=== PATIENT | female | born 1935 | race African-American/Black ===

== ENCOUNTER 2020-11-10 09:15 | Outpatient (REF) | payer MEDICARE, SELFPAY ==
[2020-11-10 10:20] LABS: Basophils Percent Auto 0.5 % (0-2); Eosinophils Absolute Auto 0.1 X10*3/uL (0.0-0.4); Eosinophils Percent Auto 1.7 % (0-4); Hematocrit 45.2 % (37-47); Hemoglobin 14.1 g/dl (12.0-16.0); Imm Gran Abs Auto 0.02 X10*3/uL (0.00-0.03); Imm Gran Pct Auto 0.3 % (0.0-0.4); Lymphocytes Absolute Auto 1.5 X10*3/uL (1.2-4.9); Lymphocytes Percent Auto 26.1 % (20-40); MANUAL DIFF FLAG SCAN; Mean Corpuscular HGB Conc 31.2 g/dl (31.0-35.0); Mean Corpuscular Hemoglobin 27.8 pg (27.0-33.0); Mean Corpuscular Volume 89.2 fL (80-98); Mean Platelet Volume 12.6 fL (9.4-12.3); Monocytes Absolute Auto 0.6 X10*3/uL (0.1-1.2); Monocytes Percent Auto 9.4 % (2-11); Neutrophils Absolute Auto 3.6 X10*3/uL (2.0-8.3); PLT CLUMP 1; Red Blood Count 5.07 X10*6/uL (4.20-5.50); Red Cell Distribution Width 13.7 % (11.0-16.0); SCAN SMEAR FLAG 1
[2020-11-10 10:25] LABS: Estimated Average Glucose 126 mg/dL
[2020-11-10 10:40] LABS: Alanine Aminotransferase 12 U/L (0-31); Albumin Level 4.5 g/dL (3.5-5.0); Alkaline Phosphatase 101 U/L (39-117); Anion Gap 14 (12-20); Aspartate Amino Transferase 17 U/L (5-31); Bilirubin Total 0.5 mg/dL (0.0-1.0); Blood Urea Nitrogen 17 mg/dL (9-16); Calcium 9.9 mg/dL (8.4-10.2); Carbon Dioxide 27 mmol/L (22-29); Chloride 106 mmol/L (96-108); Cholesterol 163 mg/dL; Estimated Glomerular Filt Rate 47; Glucose Random 110 mg/dL (60-115); HDL Cholesterol 57 mg/dL; LDL Cholesterol Calculated 94 mg/dl; Potassium 3.9 mmol/L (3.3-5.1); Sodium 143 mmol/L (135-145); Total Protein 7.8 g/dL (6.5-8.0); Triglycerides 64 mg/dL
[2020-11-10 10:41] LABS: Creatinine Urine 95.17 mg/dL; Microalbum/Creatinine Ratio Ur 511.7 ug/mg cr
[2020-11-10 11:02] LABS: Free T4 (Free Thyroxine) 1.13 ng/dL (0.71-1.85); Vitamin D 25-OH Total 56.9 ng/mL (>30)
[2020-11-10 11:28] LABS: White Blood Count 5.8 X10*3/uL (4.8-10.8)
[2020-11-10 11:30] LABS: SLIDE REVIEW VERIFIED
[2020-11-10 11:34] LABS: Folate 7.7 ng/mL (> or = 4.0); Vitamin B12 244 pg/mL (200-900)
== END 2020-11-10 09:16 | disposition home or self-care (01) ==
LOC: HO.LAB 09:15
PROVIDERS: PCP Internal Medicine; Visit Provider Internal Medicine
DX: E11.65 Type 2 diabetes mellitus with hyperglycemia (principal); E78.00 Pure hypercholesterolemia, unspecified; E11.21 Type 2 diabetes mellitus with diabetic nephropathy; I10 Essential (primary) hypertension
CPT/HCPCS: 36415; 80053; 80061; 82043; 82306; 82607; 82746; 83036; 84439; 84443; 85025

== ENCOUNTER 2020-11-15 07:27 | Outpatient (REF) | payer MEDICARE, SELFPAY ==
[2020-11-15 08:40] LABS: Alanine Aminotransferase 11 U/L (0-31); Albumin Level 4.4 g/dL (3.5-5.0); Alkaline Phosphatase 83 U/L (39-117); Anion Gap 13 (12-20); Aspartate Amino Transferase 15 U/L (5-31); Bilirubin Total 0.6 mg/dL (0.0-1.0); Blood Urea Nitrogen 14 mg/dL (9-16); Calcium 9.8 mg/dL (8.4-10.2); Carbon Dioxide 29 mmol/L (22-29); Chloride 105 mmol/L (96-108); Estimated Glomerular Filt Rate 50; Glucose Random 111 mg/dL (60-115); Potassium 4.4 mmol/L (3.3-5.1); Sodium 143 mmol/L (135-145); Total Protein 7.5 g/dL (6.5-8.0)
[2020-11-15 09:33] LABS: Protein/Creatinine Ratio, Ur 0.37 (<0.2); Total Protein Urine Random 39 mg/dL (<12)
[2020-11-17 17:31] LABS: Calcium (PTHI) 9.9 mg/dL (8.6-10.4); PTHI 50 pg/mL (14-64)
== END 2020-11-15 07:28 | disposition home or self-care (01) ==
LOC: HO.LAB 07:27
PROVIDERS: PCP Internal Medicine; Visit Provider Internal Medicine Hypertension Specialist
DX: I10 Essential (primary) hypertension (principal)
CPT/HCPCS: 36415; 80053; 83970; 84156

== ENCOUNTER 2021-03-14 08:30 | Outpatient (REF) | payer MEDICARE, SELFPAY ==
[2021-03-14 09:54] LABS: Free T4 (Free Thyroxine) 1.07 ng/dL (0.71-1.85); Thyroid Stimulating Hormone 0.37 uIU/mL (0.32-4.0)
[2021-03-14 10:47] LABS: Creatinine Urine 159.75 mg/dL
== END 2021-03-14 08:31 | disposition home or self-care (01) ==
LOC: HO.LAB 08:30
PROVIDERS: PCP Internal Medicine; Visit Provider Internal Medicine
DX: E11.65 Type 2 diabetes mellitus with hyperglycemia (principal); R94.6 Abnormal results of thyroid function studies
CPT/HCPCS: 36415; 84439; 84443

== ENCOUNTER 2021-04-11 07:24 | Outpatient (REF) | payer MEDICARE, SELFPAY ==
--- NOTE | ~2021-04-11 | MM_ITS ---
EXAMINATION: BONE DENSITOMETRY CLINICAL INDICATION: Osteopenia. COMPARISON: Baseline BD dated 05/21/2013. TECHNIQUE: Using a [employer] DXA System (software version: 13.1) manufactured by [employer], dual-energy x-ray absorptiometry was performed of the lumbar spine and left hip. The images are of good technical quality. Summary results are attached. FINDINGS: AP SPINE L1-L4: Current: BMD 1.493 g/cm2, Z-score 4.1, T-score 2.6, normal, 9.7% increase from baseline (<5% change is not significant). Baseline: BMD 1.361 g/cm2. LEFT FEMUR, NECK: Current: BMD 0.975 g/cm2, Z-score 1.2, T-score -0.5, normal. Baseline: BMD 1.087 g/cm2. LEFT FEMUR, TOTAL: Current: BMD 0.885 g/cm2, Z-score 0.6, T-score -1.0, normal, 9.3% decrease from baseline (<5% change is not significant). Baseline: BMD 0.976 g/cm2. IDENTIFIED RISK FACTORS: Menopause, renal. HISTORY OF FRACTURE: None listed. MEDICATIONS: Vitamin D. MM/XR DEXA axial skeleton IMPRESSION: 1. DIAGNOSIS: Normal bone density based on the lowest T-score value of -1.0 in the total femur applying World Health Organization criteria. 2. 10-YEAR FRACTURE RISK PREDICTION, FRAX: Major osteoporotic fracture (clinical spine, forearm, hip or shoulder) 4.0%. Hip fracture 0.8%. 3. Treatment Recommendations: NOF guidelines recommend consideration for treatment in postmenopausal women and men age 50 and older presenting with the following: -A hip or vertebral (clinical or morphometric) fracture. -T-score less than or equal to -2.5 at the femoral neck or spine after appropriate evaluation to exclude secondary causes. -Low bone mass at the hip or spine and a 10-year fracture probability by FRAX of greater than or equal to 3% for hip fracture or greater than or equal to 20% for major osteoporotic fracture based on the [place] adapted WHO algorithm. 4. Other Recommendations: All treatment decisions require clinical judgment and consideration of individual patient factors, including patient preferences, comorbidities, previous drug use, risk factors not captured in the FRAX model (e.g. frailty, falls, vitamin D deficiency, increased bone turnover, interval significant decline in bone density) and possible under or overestimation of fracture risk by FRAX. FUTURE SCAN RECOMMENDATION: People with diagnosed cases of osteoporosis or at high risk for fracture should have regular bone mineral density tests. For patients eligible for Medicare, routine testing is allowed once every 2 years. The testing frequency can be increased to one year for patients who have rapidly progressing disease, those who are receiving or discontinuing medical therapy to restore bone mass, or have additional risk factors.
== END 2021-04-11 07:25 | disposition home or self-care (01) ==
LOC: HO.US 07:24
PROVIDERS: PCP Internal Medicine; Visit Provider Internal Medicine
DX: Z13.820 Encounter for screening for osteoporosis (principal); M85.89 Other specified disorders of bone density and structure, multiple sites; Z78.0 Asymptomatic menopausal state
CPT/HCPCS: 77080

== ENCOUNTER 2021-04-24 08:55 | Outpatient (REF) | payer MEDICARE, SELFPAY ==
--- NOTE | ~2021-04-24 | US_ITS ---
EXAMINATION: US THYROID CLINICAL INFORMATION: Thyroid nodule. COMPARISON: Ultrasound thyroid 12/16/2018. TECHNIQUE: Linear transducer grayscale and color Doppler examination with attention to the region of the thyroid. FINDINGS: SIZE: Measurements of the thyroid lobes and nodules are given in sagittal, anteroposterior and transverse dimensions respectively. Right Thyroid Lobe: 5.7 x 2.3 x 2.4 cm, volume 16.5 mL. Previously 5.6 x 2.7 x 2.1 cm, volume 16.5 mL. Parenchyma: The gland echotexture is heterogeneous. Thyroid vascularity is increased. Left Thyroid Lobe: 5.2 x 1.1 x 1.5 cm, volume 4.5 mL. Previously 4.4 x 1.8 x 1.4 cm, volume 5.7 mL. Parenchyma: The gland echotexture is heterogeneous. Thyroid vascularity is normal. Isthmus: 0.3 cm in maximum AP dimension. Previously 0.2 cm. There are innumerable bilateral nodules. 5 largest nodules greater than or equal to 1 cm are measured. Estimated total number of nodules greater than or equal to 1 cm: 5. Career Guidance Technician nodules are described as follows: 1. Location: Right mid. Size: 1.7 x 1.3 x 1.7 cm, volume 2.0 mL. Previously: Nodule characteristics: Composition: Solid/almost completely solid (2). Echogenicity: Hyperechoic (1). Shape: Not taller than wide (0). Margins: Ill-defined (0). Echogenic Foci: Macrocalcifications (1). ACR TI-RADS total points: 4 ACR TI-RADS category: 4 Significant change in size (>/= 20% in 2 dimensions and minimal increase of 2 mm or 50% or greater increase in volume): Change in features: Change in ACR TI-RADS risk category: 2. Location: Right lower. Size: 2.5 x 2.0 x 2.0 cm, volume 5.1 mL. Previously: 2.8 x 2.0 x 2.3 cm, volume 6.7 mL. Nodule characteristics: Composition: Solid/almost completely solid (2). Echogenicity: Hyperechoic (1). Shape: Not taller than wide (0). Margins: Ill-defined (0). Echogenic Foci: None (0). ACR TI-RADS total points: 3 ACR TI-RADS category: 3 Significant change in size (>/= 20% in 2 dimensions and minimal increase of 2 mm or 50% or greater increase in volume): Change in features: Change in ACR TI-RADS risk category: 3. Location: Right lower. Size: 1.9 x 1.7 x 2.0 cm, volume 3.2 mL. Previously: Nodule characteristics: Composition: Solid/almost completely solid (2). Echogenicity: Hyperechoic (1). Shape: Not taller than wide (0). Margins: Ill-defined (0). Echogenic Foci: None (0). ACR TI-RADS total points: 3 ACR TI-RADS category: 3 Significant change in size (>/= 20% in 2 dimensions and minimal increase of 2 mm or 50% or greater increase in volume): Change in features: Change in ACR TI-RADS risk category: 4. Location: Left lower. Size: 1.3 x 0.8 x 0.7 cm, volume 0.4 mL. Previously: 1.2 x 1.1 x 1.1 cm, volume 0.8 mL. Nodule characteristics: Composition: Solid (2). Echogenicity: Hyperechoic (1). Shape: Taller than wide (3). Margins: Ill-defined (0). Echogenic Foci: None (0). ACR TI-RADS total points: 6 ACR TI-RADS category: 4 Significant change in size (>/= 20% in 2 dimensions and minimal increase of 2 mm or 50% or greater increase in volume): Change in features: Change in ACR TI-RADS risk category: 5. Location: Left lower. Size: 1.0 x 0.7 x 0.9 cm, volume 0.3 mL. Previously: 1.0 x 0.8 x 0.8 cm, volume 0.3 mL. Nodule characteristics: Composition: Solid (2). Echogenicity: Hyperechoic (1). Shape: Not taller than wide (0). Margins: Ill-defined (0). Echogenic Foci: None (0). ACR TI-RADS total points: 3 ACR TI-RADS category: 3 Significant change in size (>/= 20% in 2 dimensions and minimal increase of 2 mm or 50% or greater increase in volume): Change in features: Change in ACR TI-RADS risk category: NODES: No lymphadenopathy is seen in the tissue surrounding the thyroid gland. US/US thyroid IMPRESSION: Enlarged very heterogeneous hypervascular thyroid gland. Innumerable bilateral nodules. There are 2 newly appreciated nodules in the right lobe. ACR TI-RADS RECOMMENDATION REFERENCE: Ultrasound-guided fine-needle aspiration, followup ultrasound, no further follow up. * TR1 (0 point) and TR 2 (2 points): No FNA or follow up * TR3 (3 points): FNA if more than or equal to 2.5 cm in maximum dimension, followup ultrasound in 1, 3 and 5 years if 1.5 to 2.4 cm in maximum dimension. * TR4 (4-6 points): FNA if more than or equal to 1.5 cm in maximum dimension, followup ultrasound in 1, 2, 3 and 5 years if 1 to 1.4 cm in maximum dimension. * TR5 (more than or equal to 7 points): FNA if more than or equal to 1 cm in maximum dimension, followup ultrasound every year for 5 years if 0.5 to 0.9 cm in maximum dimension. * TR3, TR4 or TR5 nodules that are below the size threshold for follow up receive no follow up.
== END 2021-04-24 08:56 | disposition home or self-care (01) ==
LOC: HO.US 08:55
PROVIDERS: PCP Internal Medicine; Visit Provider Internal Medicine
DX: E04.1 Nontoxic single thyroid nodule (principal)
CPT/HCPCS: 76536

== ENCOUNTER 2022-01-06 07:57 | Outpatient (REF) | payer MEDICARE, SELFPAY ==
[2022-01-06 08:13] LABS: MANUAL DIFF FLAG NO
[2022-01-06 08:43] LABS: Basophils Absolute Auto 0.1 X10*3/uL (0.0-0.2); Basophils Percent Auto 1.2 % (0-2); Eosinophils Absolute Auto 0.1 X10*3/uL (0.0-0.4); Eosinophils Percent Auto 1.9 % (0-4); Hemoglobin 14.3 g/dl (12.0-16.0); Imm Gran Abs Auto 0.01 X10*3/uL (0.00-0.03); Imm Gran Pct Auto 0.2 % (0.0-0.4); Lymphocytes Absolute Auto 1.6 X10*3/uL (1.2-4.9); Lymphocytes Percent Auto 38.3 % (20-40); Mean Corpuscular HGB Conc 31.8 g/dl (31.0-35.0); Mean Corpuscular Hemoglobin 27.3 pg (27.0-33.0); Mean Corpuscular Volume 85.9 fL (80.0-98.0); Monocytes Absolute Auto 0.6 X10*3/uL (0.1-1.2); Monocytes Percent Auto 13.8 % (2-11); Neutrophils Absolute Auto 1.9 x10*3/uL (2.0-8.3); Neutrophils Percent Auto 44.6 % (45-73); Platelet Count 246 X10*3/uL (160-400); Red Blood Count 5.24 X10*6/uL (4.20-5.50); Red Cell Distribution Width 13.8 % (11.0-16.0); White Blood Count 4.2 X10*3/uL (4.8-10.8)
[2022-01-06 08:54] LABS: Estimated Average Glucose 123 mg/dL; Hemoglobin A1C 150.7878 umol/L; Hemoglobin A1c % 5.9 %
[2022-01-06 08:59] LABS: Alanine Aminotransferase 12 U/L (0-31); Albumin Level 4.6 g/dL (3.5-5.0); Alkaline Phosphatase 88 U/L (39-117); Anion Gap 15 (12-20); Aspartate Amino Transferase 15 U/L (5-31); Bilirubin Direct 0.3 mg/dL (0.0-0.5); Bilirubin Total 0.7 mg/dL (0.0-1.0); Blood Urea Nitrogen 17 mg/dL (9-16); C Reactive Protein 0.31 mg/dL (< or = 0.50); Calcium 9.9 mg/dL (8.4-10.2); Carbon Dioxide 29 mmol/L (22-29); Chloride 104 mmol/L (96-108); Cholesterol 167 mg/dL; Estimated Glomerular Filt Rate 45; Glucose Random 91 mg/dL (60-115); HDL Cholesterol 57 mg/dL; LDL Cholesterol Calculated 98 mg/dl; Potassium 4.2 mmol/L (3.3-5.1); Sodium 144 mmol/L (135-145); Total Protein 8.1 g/dL (6.5-8.0); Triglycerides 62 mg/dL
[2022-01-06 09:21] LABS: Free T4 (Free Thyroxine) 1.14 ng/dL (0.71-1.85); Thyroid Stimulating Hormone 0.48 uIU/mL (0.32-4.0); Vitamin D 25-OH Total 64.3 ng/mL (>30)
[2022-01-06 10:58] LABS: Creatinine Urine 150.65 mg/dL; Microalbum/Creatinine Ratio Ur 254.8 ug/mg cr
[2022-01-08 08:05] LABS: Folate 7.4 ng/mL (> or = 4.0); Vitamin B12 > 2000 pg/mL (200-900)
== END 2022-01-06 07:58 | disposition home or self-care (01) ==
LOC: HO.LAB 07:57
PROVIDERS: PCP Internal Medicine; Visit Provider Internal Medicine
DX: R10.9 Unspecified abdominal pain (principal); E11.65 Type 2 diabetes mellitus with hyperglycemia; E78.00 Pure hypercholesterolemia, unspecified
CPT/HCPCS: 36415; 80053; 80061; 82043; 82248; 82306; 82607; 82746; 83036; 84439; 84443; 85025; 86140

== ENCOUNTER 2022-10-20 10:19 | Outpatient (REF) | payer MEDICARE, SELFPAY ==
--- NOTE | ~2022-10-20 | XR_ITS ---
EXAMINATION: XR CHEST CLINICAL INFORMATION: Cough, unspecified COMPARISON: None available. TECHNIQUE: 2 views of the chest were obtained. FINDINGS: Trace linear atelectasis at the left base post appreciated on lateral radiograph. Otherwise no significant abnormality is noted involving the heart, lungs, mediastinum, bony thorax or soft tissues. XR/XR chest 2V IMPRESSION: Probable minimal linear atelectasis at the left base.
== END 2022-10-20 10:20 | disposition home or self-care (01) ==
LOC: HO.XRAY 10:19
PROVIDERS: PCP Internal Medicine; Visit Provider Internal Medicine
DX: R05.9 Cough, unspecified (principal)
CPT/HCPCS: 71046

== ENCOUNTER 2022-10-30 13:41 | Outpatient (REF) | payer MEDICARE, SELFPAY ==
--- NOTE | ~2022-10-30 | US_ITS ---
EXAMINATION: US THYROID CLINICAL INFORMATION: Nontoxic single thyroid nodule. COMPARISON: Ultrasound thyroid 04/24/2021 and 05/05/2015. TECHNIQUE: Linear transducer grayscale and color Doppler examination with attention to the region of the thyroid. FINDINGS: SIZE: Measurements of the thyroid lobes and nodules are given in sagittal, anteroposterior and transverse dimensions respectively. Right Thyroid Lobe: 5.6 x 2.5 x 1.9 cm, volume 13.9 mL. Previously 5.7 x 2.3 x 2.4 cm, volume 16.5 mL. Parenchyma: The gland echotexture is heterogeneous. Thyroid vascularity is normal. Left Thyroid Lobe: 4.4 x 1.3 x 1.4 cm, volume 4.2 mL. Previously 5.2 x 1.1 x 1.5 cm, volume 4.5 mL. Parenchyma: The gland echotexture is heterogeneous. Thyroid vascularity is normal. Isthmus: 0.3 cm in maximum AP dimension. Previously 0.3 cm. Estimated total number of nodules greater than or equal to 1 cm: 4. Jowl Trimmer nodules are described as follows: 1. Location: Right mid. Size: 0.6 x 0.9 x 1.0 cm, volume 0.3 mL. Previously: Not seen on the previous study. Nodule characteristics: Composition: Mixed cystic and solid (1). Echogenicity: Hyperechoic (1). Shape: Not taller than wide (0). Margins: Smooth (0). Echogenic Foci: None (0). ACR TI-RADS total points: 2 ACR TI-RADS category: 2 2. Location: Right inferior. Size: 1.4 x 1.3 x 1.7 cm, volume 1.6 mL. Previously: 1.7 x 1.3 x 1.7 cm, volume 2.0 mL. Nodule characteristics: Composition: Solid (2). Echogenicity: Isoechoic (1). Shape: Not taller than wide (0) visually and appears slightly over measured by the hook and eye machine operator. Margins: Smooth (0). Echogenic Foci: Macrocalcifications (1). No definite punctate echogenic foci. ACR TI-RADS total points: 4 Previous: 4 ACR TI-RADS category: 4 Previous: 4 Significant change in size (>/= 20% in 2 dimensions and minimal increase of 2 mm or 50% or greater increase in volume): No Change in features: No Change in ACR TI-RADS risk category: No 3. Location: Right inferior. Size: 2.1 x 1.6 x 1.6 cm, volume 2.8 mL. Previously: 2.5 x 2.0 x 2.0 cm, volume 5.1 mL. Nodule characteristics: Composition: Solid (2). Echogenicity: Hyperechoic (1). Shape: Not taller than wide (0). Margins: Ill-defined (0). Echogenic Foci: None (0). ACR TI-RADS total points: 3 Previous: 3 ACR TI-RADS category: 3 Previous: 3 Significant change in size (>/= 20% in 2 dimensions and minimal increase of 2 mm or 50% or greater increase in volume): No Change in features: No Change in ACR TI-RADS risk category: No 4. Location: Left inferior. Size: 0.8 x 0.8 x 0.9 cm, volume 0.3 mL. Previously: 1.3 x 0.8 x 0.7 cm, volume 0.4 mL. Nodule characteristics: Composition: Solid (2). Echogenicity: Hyperechoic (1). Shape: Not taller than wide (0). Margins: Smooth (0). Echogenic Foci: None (0). ACR TI-RADS total points: 3 Previous: 6 ACR TI-RADS category: 3 Previous: 4 Significant change in size (>/= 20% in 2 dimensions and minimal increase of 2 mm or 50% or greater increase in volume): No Change in features: Yes Change in ACR TI-RADS risk category: Yes, is no longer taller than wide 5. Location: Left inferior. Size: 1.1 x 0.1 x 1.1 cm, volume 0.6 mL. Previously: 1.0 x 0.7 x 0.9 cm, volume 0.3 mL. Nodule characteristics: Composition: Solid (2). Echogenicity: Hyperechoic (1). Shape: Not taller than wide (0). Margins: Smooth (0). Echogenic Foci: None (0). ACR TI-RADS total points: 3 Previous: 3 ACR TI-RADS category: 3 Previous: 3 Significant change in size (>/= 20% in 2 dimensions and minimal increase of 2 mm or 50% or greater increase in volume): Yes Change in features: No Change in ACR TI-RADS risk category: No NODES: No lymphadenopathy is seen in the tissue surrounding the thyroid gland. US/US thyroid IMPRESSION: A 1.7 cm TR 4 right thyroid nodule meets criteria for tissue sampling if not ready obtained. A 2.1 cm TR 3 right inferior thyroid nodule meets criteria for 2 year follow-up thyroid ultrasound. Remainder of thyroid nodules as detailed above do not meet criteria for follow-up. ACR TI-RADS RECOMMENDATION REFERENCE: Ultrasound-guided fine-needle aspiration, followup ultrasound, no further follow up. * TR1 (0 point) and TR2 (2 points): No FNA or follow up. * TR3 (3 points): FNA if more than or equal to 2.5 cm in maximum dimension, followup ultrasound in 1, 3 and 5 years if 1.5 to 2.4 cm in maximum dimension. * TR4 (4-6 points): FNA if more than or equal to 1.5 cm in maximum dimension, followup ultrasound in 1, 2, 3 and 5 years if 1 to 1.4 cm in maximum dimension. * TR5 (more than or equal to 7 points): FNA if more than or equal to 1 cm in maximum dimension, followup ultrasound every year for 5 years if 0.5 to 0.9 cm in maximum dimension. * TR3, TR4 or TR5 nodules that are below the size threshold for followup receive no follow up.
== END 2022-10-30 13:42 | disposition home or self-care (01) ==
LOC: HO.US 13:41
PROVIDERS: PCP Internal Medicine; Visit Provider Internal Medicine
DX: E04.1 Nontoxic single thyroid nodule (principal)
CPT/HCPCS: 76536

== ENCOUNTER 2022-11-15 14:35 | Outpatient (REF) | payer MEDICARE, SELFPAY ==
[2022-11-15 18:29] LABS: Free T4 (Free Thyroxine) 1.02 ng/dL (0.71-1.85); Thyroid Stimulating Hormone 0.74 uIU/mL (0.32-4.0)
== END 2022-11-15 14:36 | disposition home or self-care (01) ==
LOC: HO.LAB 14:35
PROVIDERS: PCP Internal Medicine; Visit Provider Internal Medicine
DX: E04.2 Nontoxic multinodular goiter (principal)
CPT/HCPCS: 36415; 84439; 84443; 99202

== ENCOUNTER 2022-12-12 09:37 | Outpatient (AMB) | payer MEDICARE, SELFPAY ==
[2022-12-12 09:39] VITALS: BP 122/68; PULSE 83; O2SAT 94; BMI 20.8
--- NOTE | 2022-12-12 09:39 | MHC.PC.OV ---
Vital Signs 12/12/22 09:39 Height 5 ft 2 in Weight 114 lb BMI 20.8 BP 122/68 Blood Pressure Location Lt brachial Position Sitting Pulse 83 Pulse Source Pulse Oximeter Pulse Oximetry (%) 94 Oxygen Delivery Method Room Air Intake Visit Reasons: Diabetes mellitus, weight loss, cough,hypertension Allergies lisinopril Allergy (Unknown, Verified 12/12/22 09:39) angioedema Tobacco use date assessed: 10/12/22 Fall risk assessment: No Falls in past year Last assessed Fall Risk: 12/12/22 Dental Screening Dental Screen Date: 12/12/22 Did you have a dental visit in the last 12 months?: No Did you have a dental problem in the last 6 months where you did not have access to dental care?: No Was dental information given to patient?: No HPI Diabetes mellitus, weight loss, cough,hypertension HPI Details 87-year-old female with diabetes mellitus controlled, hypertension hypercholesterolemia. Last seen in October 2022 and noted to loss of weight patient did have a cough also x-ray was requested as well as blood work. Patient is here for follow-up. Patient has hyperthyroidism and was referred to the surety bond agent. Did reveal multiple bilateral thyroid nodules meeting indication for fine-needle aspiration biopsy but from the note patient declines this biopsy patient started back on vitamin b 12 but was asked last year to stop due to high b 12 level. BP machine brought in. cough is better. BP machine is good enough. Patient's appetite is good although concern about the weight loss blood work was reminded. [facility] Medical History Boutonniere deformity Chronic kidney disease (CKD) stage G3a/A1, moderately decreased glomerular filtration rate (GFR) between 45-59 mL/min/1.73 square meter and albuminuria creatinine ratio less than 30 mg/g Diabetic nephropathy Hypertension Multinodular thyroid Subclinical hyperthyroidism Thyroid nodule Type 2 diabetes mellitus with hyperglycemia Vitamin D deficiency Surgical History History of thyroidectomy Hypercholesterolemia Family History Father Medical history unknown Mother Diabetes Social History Household Members Other:: daughter Housing: House Alcohol intake: never Patient Tobacco Use Status: Former Tobacco user Tobacco use type: Cigarette Years Smoked: stopped 2003 e-Cigarette/Vaping Use: Never Used Second Hand Smoke Exposure: No service: No Current occupational status: retired Cognitive needs: No Hearing needs: No Vision needs: Yes Questionnaire PHQ-9 Over the last 2 weeks, how often have you been bothered by any of the following problems? 1. Little interest or pleasure in doing things: not at all 2. Feeling down, depressed, or hopeless: not at all 3. Trouble falling or staying asleep, or sleeping too much: not at all 4. Feeling tired or having little energy: not at all 5. Poor appetite or overeating: not at all 6. Feeling bad about yourself - or that you are a failure or have let yourself or your family down: not at all 7. Trouble concentrating on things, such as reading the newspaper or watching television: not at all 8. Moving or speaking so slowly that other people could have noticed. Or the opposite - being so fidgety or restless that you have been moving around a lot more than usual: not at all 9. Thoughts that you would be better off or of hurting yourself in some way: not at all Total score: 0 Depression Screening Interpretation: Negative Source: Developed by Drs. Korey Sepulveda, Marcus Baker and colleagues, with an educational cary from [employer]. Thrive Questionnaire Date Thrive assessed: 07/10/22 AUDIT C Alcohol Use Questionnaire (AUDIT-C) 1. How often do you have a drink containing alcohol?: Monthly or less 2. How many drinks containing alcohol do you have on a typical day when you are drinking?: 1 or 2 3. How often do you have six or more drinks on one occasion?: Never Total Score: 1 SHYAM-7 AMB Questionnaire SHYAM-7 Date SHYAM - 7 assessed: 07/10/22 Source: Developed by Drs. Korey Sepulveda, Marcus Baker and colleagues, with an educational cary from [employer]. Physical exam (Primary Care) Vital Signs: Last Vital Signs Pulse 83 12/12/22 09:39 BP 122/68 12/12/22 09:39 Pulse Ox 94 12/12/22 09:39 Oxygen Delivery Method Room Air 12/12/22 09:39 BMI result Body Mass Index 20.8 Tobacco/Smoking Status: Tobacco use Status Tobacco use date assessed 10/12/22 12/12/22 09:44 Patient Tobacco Use Status Former Tobacco user 12/12/22 09:44 Tobacco use type Cigarette 12/12/22 09:44 e-Cigarette/Vaping Use Never Used 12/12/22 09:44 PHQ-9: PHQ-9 Score PHQ-9: Total score 0 12/12/22 09:44 Depression Screening Interpretation: Negative Thrive Assessment: Date of Thrive Assessment Date Thrive assessed 07/10/22 12/12/22 09:44 Const General: alert; No acute distress Eyes Conjunctivae: conjunctivae normal Resp Auscultation: clear to auscultation bilaterally Cardio Rate: regular rate Rhythm: regular rhythm GI Inspection: Yes normal to inspection Extrem General: Yes normal to inspection and No edema Assessment and Plan Assessment & Plan (1) Weight loss: Code(s): R63.4 - Abnormal weight loss Plan: Blood work that I have requested was not done. Appetite is good (2) Multinodular thyroid: Code(s): E04.2 - Nontoxic multinodular goiter Plan: Patient had multiple thyroid nodules advised for biopsy but patient declined. Explained to the patient regarding the biopsy and the process and that it is not a big procedure to just get the biopsy and it will give us some idea on the weight problem. 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 Hemoglobin A1c goal of less than 7.0 (4) Hypertension: Code(s): I10 - Essential (primary) hypertension Qualifiers: Hypertension type: essential hypertension Qualified Code(s): I10 - Essential (primary) hypertension Plan: Continue with blood pressure medication. Decrease salt intake and exercise patient is taking metoprolol 25 mg once a day hydrochlorothiazide 12.5 mg once a day and amlodipine 10 mg once a day (5) Hypercholesterolemia: Code(s): E78.00 - Pure hypercholesterolemia, unspecified Plan: Avoid fried foods, chicken skin, eggs, butter margarine, pastries and meat. Be it pork or beef they have a lot of cholesterol LDL goal of less than 100 patient is on lovastatin 40 mg once a day Coding Level of Care Code Est Pt Level 4 (29713) Diagnoses Weight loss R63.4 Multinodular thyroid E04.2 Type 2 diabetes mellitus with hyperglycemia E11.65 Diabetes mellitus fpc insulin use: without fpc use Hypertension I10 Hypertension type: essential hypertension Hypercholesterolemia E78.00
== END 2022-12-12 10:17 | disposition home or self-care (01) ==
PROVIDERS: PCP Internal Medicine; Visit Provider Internal Medicine
DX: R63.4 Abnormal weight loss (principal); E04.2 Nontoxic multinodular goiter; E11.65 Type 2 diabetes mellitus with hyperglycemia; I10 Essential (primary) hypertension; E78.00 Pure hypercholesterolemia, unspecified
CPT/HCPCS: 99214

== ENCOUNTER 2022-12-15 09:45 | Outpatient (REF) | payer MEDICARE, SELFPAY ==
[2022-12-15 09:58] LABS: MANUAL DIFF FLAG NO
[2022-12-15 10:29] LABS: Basophils Percent Auto 0.7 % (0-2); Eosinophils Absolute Auto 0.1 X10*3/uL (0.0-0.4); Eosinophils Percent Auto 2.5 % (0-4); Hemoglobin 13.3 g/dl (12.0-16.0); Imm Gran Abs Auto 0.01 X10*3/uL (0.00-0.03); Imm Gran Pct Auto 0.2 % (0.0-0.4); Lymphocytes Absolute Auto 1.8 X10*3/uL (1.2-4.9); Lymphocytes Percent Auto 41.3 % (20-40); Mean Corpuscular HGB Conc 31.7 g/dl (31.0-35.0); Mean Corpuscular Hemoglobin 27.6 pg (27.0-33.0); Mean Corpuscular Volume 87.1 fL (80.0-98.0); Mean Platelet Volume 11.3 fL (9.4-12.3); Monocytes Absolute Auto 0.7 X10*3/uL (0.1-1.2); Monocytes Percent Auto 15.3 % (2-11); Neutrophils Absolute Auto 1.8 x10*3/uL (2.0-8.3); Platelet Count 234 X10*3/uL (160-400); Red Blood Count 4.82 X10*6/uL (4.20-5.50); White Blood Count 4.4 X10*3/uL (4.8-10.8)
[2022-12-15 10:38] LABS: Estimated Average Glucose 114 mg/dL; Hemoglobin A1c % 5.6 %
[2022-12-15 11:01] LABS: Alanine Aminotransferase 9 U/L (0-31); Albumin Level 4.2 g/dL (3.5-5.0); Alkaline Phosphatase 79 U/L (39-117); Anion Gap 14 (12-20); Aspartate Amino Transferase 14 U/L (5-31); Bilirubin Total 0.5 mg/dL (0.0-1.0); Blood Urea Nitrogen 15 mg/dL (9-16); Calcium 10.3 mg/dL (8.4-10.2); Carbon Dioxide 31 mmol/L (22-29); Chloride 103 mmol/L (96-108); Cholesterol 139 mg/dL; Estimated Glomerular Filt Rate 50; Glucose Random 89 mg/dL (60-115); HDL Cholesterol 53 mg/dL; LDL Cholesterol Calculated 75 mg/dl; Potassium 3.7 mmol/L (3.3-5.1); Sodium 144 mmol/L (135-145); Total Protein 7.6 g/dL (6.5-8.0); Triglycerides 59 mg/dL
[2022-12-15 11:17] LABS: Free T4 (Free Thyroxine) 1.14 ng/dL (0.71-1.85); Thyroid Stimulating Hormone 0.36 uIU/mL (0.32-4.0)
[2022-12-15 11:33] LABS: Vitamin B12 1364 pg/mL (200-900)
== END 2022-12-15 09:46 | disposition home or self-care (01) ==
LOC: HO.LAB 09:45
PROVIDERS: Internal Medicine; PCP Internal Medicine; Visit Provider Internal Medicine
DX: E11.65 Type 2 diabetes mellitus with hyperglycemia (principal); E78.00 Pure hypercholesterolemia, unspecified; E04.2 Nontoxic multinodular goiter; M85.80 Other specified disorders of bone density and structure, unspecified site; E55.9 Vitamin D deficiency, unspecified
CPT/HCPCS: 36415; 80053; 80061; 82306; 82607; 82746; 83036; 84439; 84443; 85025

== ENCOUNTER 2023-01-12 08:45 | Emergency (ER) | payer MEDICARE, SELFPAY ==
--- NOTE | ~2023-01-12 | XR_ITS ---
EXAMINATION: XR RIBS, RIGHT CLINICAL INFORMATION: Right lower rib pain COMPARISON: Previous chest x-ray October 2022 TECHNIQUE: 3 views of the right ribs and one view of the chest were obtained. FINDINGS: The cardiac and mediastinal contours are stable. The lungs are clear. No pleural effusion or pneumothorax. No acute rib fracture. There is question of old right posterior 10th and 11th rib fractures. There are degenerative changes of the spine. There are degenerative changes at the shoulder joints. XR/XR ribs RT min 3V w CXR1V IMPRESSION: No evidence for acute disease in the chest. No acute rib fracture. Question old right posterior 10th and 11th rib fractures.
[2023-01-12 08:54] VITALS: BP 144/74; PULSE 70; RESP 18; TEMP 37.4; O2SAT 95; BMI 20.5
--- NOTE | 2023-01-12 09:27 | ED.ABDPAIN ---
HPI - Abdominal Pain General Chief Complaint: Extremity Problem Stated Complaint: R sided pain Time Seen by Provider: 01/12/23 09:11 Source: patient Mode of arrival: ambulatory Limitations: no limitations History of Present Illness HPI narrative: 87 y/o female with history of HTN, HLD, DM, constipation who presents to the ER for evaluation of intermittent right sided flank pain for the last 1 week. The pain is located on her left flank, comes and goes at random times, But seems to be worse with movement. She has no current pain. She states when the pain comes it is sharp and nonradiating. It is 10/10 when it calms. She has no associated urinary symptoms such as hematuria, dysuria, urgency or frequency. She has no abdominal pain, nausea, vomiting, diarrhea. She is moving her bowels normally. She denies any falls or trauma. Daughter is concerned it is a muscular pain because she always sits sideways, on her left hip and buttock, straining the right side of her back MD elicited complaint: flank pain Pertinent past history: constipation Onset (ago): week(s) (1) Pain Consistency: intermittent Location: R flank Severity: severe Pain scale (0-10): 10 Quality: stabbing Radiation: none Migration to: no migration Exacerbating factors: movement Relieving factors: nothing Associated symptoms: denies other symptoms Related Data Home Medications Medication Instructions Recorded Confirmed cholecalciferol (vitamin D3) 25 25 mcg PO DAILY 03/29/20 11/15/22 mcg (1,000 unit) capsule Previous Rx's Medication Instructions Recorded cyanocobalamin (vitamin B-12) 1,000 mcg PO DAILY #90 caps 07/31/21 1,000 mcg capsule metformin 500 mg tablet 500 mg PO DAILY #90 tabs 02/27/22 blood pressure monitor (Blood #1 ea 03/27/22 Pressure Kit) amlodipine 10 mg tablet 10 mg PO DAILY #90 tabs 09/10/22 lovastatin 40 mg tablet 40 mg PO BEDTIME #90 tabs 09/10/22 hydrochlorothiazide 12.5 mg tablet 12.5 mg PO QAM 30 days #90 tabs 09/28/22 metoprolol succinate 25 mg 25 mg PO DAILY #90 tabs 12/21/22 tablet,extended release 24 hr Allergies Allergy/AdvReac Type Severity Reaction Status Date / Time lisinopril Allergy Unknown angioedema Verified 01/12/23 08:53 Review of Systems Review of Systems Yes all other systems are reviewed and are negative [facility] Past Medical History Medical History Anderonniere deformity Chronic kidney disease (CKD) stage G3a/A1, moderately decreased glomerular filtration rate (GFR) between 45-59 mL/min/1.73 square meter and albuminuria creatinine ratio less than 30 mg/g Diabetic nephropathy Hypertension Multinodular thyroid Subclinical hyperthyroidism Thyroid nodule Type 2 diabetes mellitus with hyperglycemia Vitamin D deficiency Surgical History History of thyroidectomy Hypercholesterolemia Family History Family History Father Medical history unknown Mother Diabetes Social History Social History Household Members Other:: daughter Housing: House Alcohol intake: never Patient Tobacco Use Status: Former Tobacco user Tobacco use type: Cigarette Years Smoked: stopped 2003 e-Cigarette/Vaping Use: Never Used Second Hand Smoke Exposure: No Advance Directives: Yes Advance Directives on File: Yes Advance Directives Date on File: 03/30/21 service: No Current occupational status: retired Cognitive needs: No Hearing needs: No Vision needs: Yes Physical Exam ED Vital Signs: Vital Signs - 24 hr 01/12/23 08:54 Temperature 99.3 F Pulse Rate 70 Respiratory Rate 18 Blood Pressure 144/74 H Pulse Oximetry 95 Oxygen Delivery Method Room Air BMI result Body Mass Index 20.5 Appearance: Alert. Oriented X3. No acute distress. Head: normocephalic, atraumatic. Eyes: Pupils equal, round and reactive to light. ENT: Pharynx normal. No tonsillar swelling or exudate. Neck: Normal inspection. Neck supple. CVS: Normal heart rate and rhythm. Pulses normal. Respiratory: No respiratory distress. Breath sounds normal. Abdomen: Soft and nontender. +BS x4. no CVA tenderness. Skin: Skin warm and dry. Normal skin color. Normal skin turgor. No rashes. Extremities: No lower extremity edema. No joint swelling. Neuro/psych: Oriented X 3. No motor deficit. No sensory deficit. CN II-XII intact. Normal speech and cognition. Steady gait Medical Decision Making Medical Decision Making [facility] Narrative: 87-year-old female with history of hypertension, hyperlipidemia, diabetes presents to the ER for evaluation of intermittent right-sided flank pain for the last 1 week. No current pain at this time. Physical exam is unremarkable without any significant tenderness. Chest x-ray was performed along with labs and a urinalysis. Workup is essentially unremarkable. at this time patient is stable for discharge home with as needed Tylenol, Motrin, rest, ice, heat. She is encouraged follow-up with her primary care doctor. Differential Diagnosis Differential Diagnoses: The differential diagnosis associated with the presentation includes UTI, pyelonephritis, kidney stone, acute cholecystitis, biliary colic, fractured rib, pneumonia Admission/Observation Consideration of admission/observation: Escalation of care including admission/observation considered a bili female with multiple medical comorbidities presenting with right-sided flank pain, considered observation /admission Lab Data [facility] Lab Attestation statement: I reviewed the patient's lab results. mild thrombocytopenia, urinalysis not consistent with UTI 01/12/23 09:42 01/12/23 09:42 Labs: Lab Results 01/12/23 01/12/23 01/12/23 Range/Units 09:42 09:42 10:51 WBC 4.8 (4.8-10.8) X10*3/uL RBC 5.08 (4.20-5.50) X10*6/uL Hgb 14.0 (12.0-16.0) g/dl Hct 42.6 (37.0-47.0) % MCV 84.7 (80.0-98.0) fL MCH 27.8 (27.0-33.0) pg MCHC 32.9 (31.0-35.0) g/dl RDW 13.7 (11.0-16.0) % Plt Count 145 L D (160-400) X10*3/uL MPV 11.5 (9.4-12.3) fL Immature Gran % (Auto) 0.4 (0.0-0.4) % Neut % (Auto) 54.4 (45-73) % Lymph % (Auto) 27.6 (20-40) % [place] % (Auto) 14.6 H (2-11) % Eos % (Auto) 1.9 (0-4) % Baso % (Auto) 1.1 (0-2) % Lymph # (Auto) 1.3 (1.2-4.9) X10*3/uL [place] # (Auto) 0.7 (0.1-1.2) X10*3/uL Eos # (Auto) 0.1 (0.0-0.4) X10*3/uL Baso # (Auto) 0.1 (0.0-0.2) X10*3/uL Abs Immat Gran (auto) 0.02 (0.00-0.03) X10*3/uL Absolute Neuts (auto) 2.6 (2.0-8.3) x10*3/uL Absolute Nucleated RBC 0.000 (0.0-0.012) X10*3/uL Nucleated RBC % (auto) 0.0 (0.0-0.2) /100WBC Smear Tech's Comments VERIFIED Sodium 143 (135-145) mmol/L Potassium 3.3 (3.3-5.1) mmol/L Chloride 106 (96-108) mmol/L Carbon Dioxide 25 (22-29) mmol/L Anion Gap 15 (12-20) BUN 20 H (9-16) mg/dL Creatinine 1.40 (0.5-1.4) mg/dL Estim Creat Clear Calc 23.4 Estimated GFR 36 Random Glucose 93 (60-115) mg/dL Calcium 10.1 (8.4-10.2) mg/dL Magnesium 2.2 (1.6-2.6) mg/dL Total Bilirubin 0.3 (0.0-1.0) mg/dL Direct Bilirubin 0.1 (0.0-0.5) mg/dL AST 16 (5-31) U/L ALT 11 (0-31) U/L Alkaline Phosphatase 89 (39-117) U/L Total Protein 8.2 H (6.5-8.0) g/dL Albumin 4.4 (3.5-5.0) g/dL Urine Color Yellow Urine Appearance Clear Urine pH 5.5 (5.0-9.0) Ur Specific [place] 1.015 (1.005-1.025) Urine Protein Trace (Neg-Trace) mg/dL Urine Glucose (UA) Negative (Negative) mg/dL Urine Ketones Negative (Negative) mg/dL Urine Blood Trace H (Negative) Urine Nitrite Negative (Negative) Ur Leukocyte Esterase Trace H (Negative) Urine RBC 0-2 (0-2) /HPF Urine WBC 6-10 H (0-5) /HPF Ur Squamous Epith Cells 0-2 (0-2) /HPF Urine Bacteria None Seen (None Seen) Hyaline Casts 0-2 (0-2) /LPF Independent Interpretation I performed an independent interpretation of an: Plain X-Ray Interpretation: no visible fx, no lung consolidation, agree w/ radiology read Radiology Impression Discussion of test interpretation with radiology: I have reviewed the radiologist's reading. Radiologist Impression: XR/XR ribs RT min 3V w CXR1V IMPRESSION: No evidence for acute disease in the chest. No acute rib fracture. Question old right posterior 10th and 11th rib fractures. Independent Historian Clinical information obtained from an independent historian. History obtained from or confirmed by: Other ( adult daughter at the bedside) External Record Review External record reviewed: Prior outpatient labs and Prior outpatient radiology Tests considered The following testing was considered but not selected: considered EKG however not clinically indicated today Prescription Management I considered prescription management with: Pain Medication Chronic Conditions Patient?s care impacted by: Diabetes and Hypertension Critical Care Time Critical Care Time Critical Care Time: No Discharge Plan Discharge Clinical Impression: Right flank pain Patient Disposition: Home, Self-Care Instructions: Flank Pain (ED) Additional Instructions: Your workup today including x-ray, urine test, lab work was all unremarkable. The pain may be muscular in nature. Recommend Motrin and Tylenol as needed. Rest and use ice or heat to the area as needed. If you develop new or worsening symptoms call 911 or come back to the ER for further evaluation. Prescriptions: No Action cyanocobalamin (vitamin B-12) 1,000 mcg capsule 1,000 mcg PO DAILY Qty: 90 3RF metformin 500 mg tablet 500 mg PO DAILY Qty: 90 3RF lovastatin 40 mg tablet 40 mg PO BEDTIME Qty: 90 3RF amlodipine 10 mg tablet 10 mg PO DAILY Qty: 90 3RF hydrochlorothiazide 12.5 mg tablet 12.5 mg PO QAM 30 Days Qty: 90 3RF metoprolol succinate 25 mg tablet extended release 24 hr 25 mg PO DAILY Qty: 90 3RF cholecalciferol (vitamin D3) 25 mcg (1,000 unit) capsule 25 mcg PO DAILY (DME) blood pressure monitor [Blood Pressure Kit] Kit See Rx Instructions .ROUTE .MEDSUPPLY Qty: 1 0RF Rx Instructions: As directed Referrals: Po,Apoorva Valencia MD [Primary Care Provider] -
--- NOTE | 2023-01-12 09:27 | PC.NURSE ---
pt in xray. calm, cooperative. no respiratory distress.
[2023-01-12 09:50] LABS: Imm Gran Abs Auto 0.02 X10*3/uL (0.00-0.03); Imm Gran Pct Auto 0.4 % (0.0-0.4); MANUAL DIFF FLAG SCAN; PLT CLUMP 1; SCAN SMEAR FLAG 1
[2023-01-12 09:54] LABS: Eosinophils Absolute Auto 0.1 X10*3/uL (0.0-0.4); Eosinophils Percent Auto 1.9 % (0-4)
[2023-01-12 09:56] LABS: Basophils Absolute Auto 0.1 X10*3/uL (0.0-0.2); Basophils Percent Auto 1.1 % (0-2); Hematocrit 42.6 % (37.0-47.0); Lymphocytes Absolute Auto 1.3 X10*3/uL (1.2-4.9); Lymphocytes Percent Auto 27.6 % (20-40); Mean Corpuscular HGB Conc 32.9 g/dl (31.0-35.0); Mean Corpuscular Hemoglobin 27.8 pg (27.0-33.0); Mean Corpuscular Volume 84.7 fL (80.0-98.0); Mean Platelet Volume 11.5 fL (9.4-12.3); Monocytes Absolute Auto 0.7 X10*3/uL (0.1-1.2); Monocytes Percent Auto 14.6 % (2-11); Neutrophils Absolute Auto 2.6 x10*3/uL (2.0-8.3); Neutrophils Percent Auto 54.4 % (45-73); Red Cell Distribution Width 13.7 % (11.0-16.0)
[2023-01-12 09:57] LABS: Red Blood Count 5.08 X10*6/uL (4.20-5.50); White Blood Count 4.8 X10*3/uL (4.8-10.8)
[2023-01-12 10:05] LABS: Alanine Aminotransferase 11 U/L (0-31); Albumin Level 4.4 g/dL (3.5-5.0); Alkaline Phosphatase 89 U/L (39-117); Anion Gap 15 (12-20); Aspartate Amino Transferase 16 U/L (5-31); Bilirubin Direct 0.1 mg/dL (0.0-0.5); Bilirubin Total 0.3 mg/dL (0.0-1.0); Blood Urea Nitrogen 20 mg/dL (9-16); Calcium 10.1 mg/dL (8.4-10.2); Carbon Dioxide 25 mmol/L (22-29); Chloride 106 mmol/L (96-108); Creatinine Clr Calc Pharmacy 23.4; Estimated Glomerular Filt Rate 36; Glucose Random 93 mg/dL (60-115); Magnesium 2.2 mg/dL (1.6-2.6); Potassium 3.3 mmol/L (3.3-5.1); Sodium 143 mmol/L (135-145); Total Protein 8.2 g/dL (6.5-8.0)
[2023-01-12 10:41] LABS: Platelet Count 145 X10*3/uL (160-400); SLIDE REVIEW VERIFIED
[2023-01-12 10:59] LABS: Appearance Urine Clear; Color Urine Yellow; Glucose Urine UA Negative (Negative); Leukocyte Esterase Urine Trace (Negative); Nitrite Urine Negative (Negative); PH 5.5 (5.0-9.0); Specific Gravity - Urine 1.015 (1.005-1.025); UMIC TRIGGER UACC YES; Urine Blood Trace (Negative); Urine Ketones Negative (Negative); Urine Protein Trace mg/dL (Neg-Trace)
[2023-01-12 11:03] LABS: Bacteria Urine None Seen (None Seen); Hyaline Casts Urine 0-2 /LPF (0-2); RBC Urine 0-2 /HPF (0-2); Squamous Epithelial Cell Urine 0-2 /HPF (0-2); UACC Culture Trigger YES
[2023-01-12 12:18] VITALS: BP 147/62; PULSE 69; RESP 18; TEMP 36.8; O2SAT 95
== END 2023-01-12 12:27 | disposition home or self-care (01) ==
PROVIDERS: Physician Assistant; Emergency Provider Emergency Medicine Emergency Medical Services; PCP Internal Medicine
DX: R10.9 Unspecified abdominal pain (principal); M20.029 Boutonniere deformity of unspecified finger(s); I12.9 Hypertensive chronic kidney disease with stage 1 through stage 4 chronic kidney disease, or unspecified chronic kidney disease; E11.22 Type 2 diabetes mellitus with diabetic chronic kidney disease; N18.31 Chronic kidney disease, stage 3a
CPT/HCPCS: 36415; 71101; 80048; 80076; 81001; 83735; 85025; 87086; 99284

== ENCOUNTER 2023-01-30 10:02 | Outpatient (REF) | payer MEDICARE, SELFPAY ==
--- NOTE | ~2023-01-30 | US_ITS ---
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 COMPARISON: 10/30/2022 and 04/24/2021 TECHNIQUE: Fine-needle aspiration biopsy of four thyroid nodules. Three on the right and one on the left. FINDINGS: Informed consent was obtained from the patient prior to the procedure. During this process, the procedure and potential alternatives were explained, along with the intended outcome and benefits. The risks of the procedure, as well as the risk of not doing the procedure, were discussed. The patient was given the opportunity to ask questions regarding the procedure and appeared competent to make medical decisions. A signed consent form which documents this discussion was placed in the medical record. Fine-needle aspiration biopsy of right mid pole nodule was performed with 3 separate passes of 25-gauge hypodermic needles into the 1 cm nodule. Preliminary cytologic result was of an adequate specimen. The right mid to lower pole nodule measuring 1.7 cm in largest dimension was then biopsied with 3 passes of 25-gauge hypodermic needles with preliminary cytology result of an adequate specimen. Right lower pole nodule measuring 2.1 cm in maximum dimension was then biopsied with 4 separate passes with 25-gauge hypodermic needles. The lesion was low and difficult to access and therefore no further biopsies were obtained after the fourth. Preliminary cytology result was indeterminate on the slides and we will await evaluation of the aspirates for this nodule which was a TI-RADS category 3 nodule which was smaller than on previous examination of 04/24/2021. The left lower pole nodule which measured 1.1 cm in largest dimension was then biopsied with 3 passes of 25-gauge hypodermic needles. Preliminary cytologic result was of an adequate specimen. US/US biopsy thyroid IMPRESSION: Ultrasound-guided fine-needle aspiration biopsies of four separate nodules, three on the right and one on the left. Final cytology results to follow.
== END 2023-01-30 10:03 | disposition home or self-care (01) ==
LOC: HO.US 10:02
PROVIDERS: PCP Internal Medicine; Visit Provider Internal Medicine
DX: E04.2 Nontoxic multinodular goiter (principal)
CPT/HCPCS: 10005; 88172; 88173; 88177; 88305

== ENCOUNTER → 2023-01-30 10:04 | Outpatient (BNV) | payer MEDICARE, SELFPAY | PROVIDERS: PCP Internal Medicine; Visit Provider Radiology Diagnostic Radiology | DX: E04.2 Nontoxic multinodular goiter (principal) | CPT/HCPCS: 10005; 10006 ==

== ENCOUNTER 2023-02-14 15:40 | Outpatient (AMB) | payer MEDICARE, SELFPAY ==
--- NOTE | 2023-02-14 15:43 | A.OFFVIS_ITS ---
Intake Vital Signs 02/14/23 15:44 Height 5 ft 3 in Weight 112 lb 14.027 oz BMI 20.0 BP 150/78 H Blood Pressure Location Lt brachial Position Sitting Pulse 66 Pulse Source Pulse Oximeter Intake Visit Reasons: FNA Results Intake Note: Patient present today for FNA results follow up visit. Porcelain Enameler Required: No Accompanied by: Daughter Allergies lisinopril Allergy (Unknown, Verified 02/14/23 15:49) angioedema Medication List - Last Reconciled 02/14/23 by Korey Blunt MD amlodipine 10 mg PO DAILY blood pressure monitor (Blood Pressure Kit) As directed cholecalciferol (vitamin D3) 25 mcg PO DAILY cyanocobalamin (vitamin B-12) 1,000 mcg PO DAILY hydrochlorothiazide 12.5 mg PO QAM 30 days lovastatin 40 mg PO BEDTIME metformin 500 mg PO DAILY metoprolol succinate ER 25 mg PO DAILY HPI HPI Comments History of Present Illness Details 87 YO Female with a PMHx subclinical hyp erthyroidism who is seen in consultation at the request of her PCP for a multinodular thyroid. The patient last saw Dr. Mora on 11/15/2022. She had an US of the thyroid completed 10/30/2022 which revealed multiple bilateral thyroid nodules meeting indication for FNA biopsy. She reports feeling well and denies any compressive symptoms. She also denies any symptoms of hyper or hypothyroidism. She denies any personal history of head or neck irradiation. She denies any family history of thyroid cancer. Thyroid US: 10/30/2022 Right Thyroid Lobe: 5.6 x 2.5 x 1.9 cm, volume 13.9 mL. Previously 5.7 x 2.3 x 2.4 cm, volume 16.5 mL. Parenchyma: The gland echotexture is heterogeneous. Thyroid vascularity is normal. Left Thyroid Lobe: 4.4 x 1.3 x 1.4 cm, volume 4.2 mL. Previously 5.2 x 1.1 x 1.5 cm, volume 4.5 mL. Parenchyma: The gland echotexture is heterogeneous. Thyroid vascularity is normal. Isthmus: 0.3 cm in maximum AP dimension. Previously 0.3 cm. Estimated total number of nodules greater than or equal to 1 cm: 4. Quality Assurance Lead nodules are described as follows: 1.? Location: Right mid. ?? ? Size: 0.6 x 0.9 x 1.0 cm, volume 0.3 mL. ?? ? Previously: Not seen on the previous study. ?? ? Nodule characteristics: ?? ? Composition: Mixed cystic and solid (1). ?? ? Echogenicity: Hyperechoic (1). ?? ? Shape: Not taller than wide (0). ?? ? Margins: Smooth (0). ?? ? Echogenic Foci: None (0). ? ACR TI-RADS total points: 2 ?? ? ACR TI-RADS category: 2 2.? Location: Right inferior. ?? ? Size: 1.4 x 1.3 x 1.7 cm, volume 1.6 mL. ?? ? Previously: 1.7 x 1.3 x 1.7 cm, volume 2.0 mL. ?? ? Nodule characteristics: ?? ? Composition: Solid (2). ?? ? Echogenicity: Isoechoic (1). ?? ? Shape: Not taller than wide (0) visually and appears slightly over measured by the medical health researcher. ?? ? Margins: Smooth (0). ?? ? Echogenic Foci: Macrocalcifications (1). No definite punctate echogenic foci. ?? ? ACR TI-RADS total points: 4 Previous: 4 ?? ? ACR TI-RADS category: 4 Previous: 4 ? Significant change in size (>/= 20% in 2 dimensions and minimal increase of 2 mm or 50% or greater increase in volume): No ?? ? Change in features: No ?? ? Change in ACR TI-RADS risk category: No 3.? Location: Right inferior. ?? ? Size: 2.1 x 1.6 x 1.6 cm, volume 2.8 mL. ?? ? Previously: 2.5 x 2.0 x 2.0 cm, volume 5.1 mL. ?? ? Nodule characteristics: ?? ? Composition: Solid (2). ?? ? Echogenicity: Hyperechoic (1). ?? ? Shape: Not taller than wide (0). ?? ? Margins: Ill-defined (0). ?? ? Echogenic Foci: None (0).? ACR TI-RADS total points: 3 Previous: 3 ?? ? ACR TI-RADS category: 3 Previous: 3 ? Significant change in size (>/= 20% in 2 dimensions and minimal increase of 2 mm or 50% or greater increase in volume): No ?? ? Change in features: No ?? ? Change in ACR TI-RADS risk category: No 4.? Location: Left inferior. ?? ? Size: 0.8 x 0.8 x 0.9 cm, volume 0.3 mL. ?? ? Previously: 1.3 x 0.8 x 0.7 cm, volume 0.4 mL. ?? ? Nodule characteristics: ?? ? Composition: Solid (2). ?? ? Echogenicity: Hyperechoic (1). ?? ? Shape: Not taller than wide (0). ?? ? Margins: Smooth (0). ?? ? Echogenic Foci: None (0). ? ACR TI-RADS total points: 3 Previous: 6 ?? ? ACR TI-RADS category: 3 Previous: 4 ? Significant change in size (>/= 20% in 2 dimensions and minimal increase of 2 mm or 50% or greater increase in volume): No ?? ? Change in features: Yes ?? ? Change in ACR TI-RADS risk category: Yes, is no longer taller than wide 5.? Location: Left inferior. ?? ? Size: 1.1 x 0.1 x 1.1 cm, volume 0.6 mL. ?? ? Previously: 1.0 x 0.7 x 0.9 cm, volume 0.3 mL. ?? ? Nodule characteristics: ?? ? Composition: Solid (2). ?? ? Echogenicity: Hyperechoic (1). ?? ? Shape: Not taller than wide (0). ?? ? Margins: Smooth (0). ?? ? Echogenic Foci: None (0).? ACR TI-RADS total points: 3 Previous: 3 ?? ? ACR TI-RADS category: 3 Previous: 3 ? Significant change in size (>/= 20% in 2 dimensions and minimal increase of 2 mm or 50% or greater increase in volume): Yes ?? ? Change in features: No ?? ? Change in ACR TI-RADS risk category: No NODES: No lymphadenopathy is seen in the tissue surrounding the thyroid gland. Labs: Laboratory Tests 01/06/22 08:11 TSH 0.48 Free T4 1.14 Status post FNA of several right and left thyroid nodule with benign cytology [facility] Medical History (Updated 02/01/23 @ 17:51 by Apoorva Paez MD) Multinodular thyroid Subclinical hyperthyroidism Vitamin D deficiency Chronic kidney disease (CKD) stage G3a/A1, moderately decreased glomerular filtration rate (GFR) between 45-59 mL/min/1.73 square meter and albuminuria creatinine ratio less than 30 mg/g Boutonniere deformity Thyroid nodule Diabetic nephropathy Hypertension Type 2 diabetes mellitus with hyperglycemia Surgical History History of thyroidectomy Hypercholesterolemia Family History Father Medical history unknown Mother Diabetes Social History Household Members Other:: daughter Housing: House Alcohol intake: never Patient Tobacco Use Status: Former Tobacco user Tobacco use type: Cigarette Years Smoked: stopped 2003 e-Cigarette/Vaping Use: Never Used Second Hand Smoke Exposure: No Advance Directives Date on File: 03/30/21 service: No Current occupational status: retired Cognitive needs: No Hearing needs: No Vision needs: Yes Physical Exam Vital Signs: Last Vital Signs Pulse 66 02/14/23 15:44 BP 150/78 H 02/14/23 15:44 BMI result Body Mass Index 20.0 Const Other: Thyroid gland is enlarged in size and weighs g. There are no discrete nodules palpated Assessment & Plan Assessment & Plan (1) Multinodular thyroid: Comment: Biopsy January 2023 _neg Code(s): E04.2 - Nontoxic multinodular goiter Plan: This 87-year-old female with a history of multinodular goiter status post FNA of left and right thyroid nodules with benign cytology. She appears to be clinically and biochemically euthyroid. Plan is for observation. Can repeat thyroid ultrasound about 1-2 years . Coding Level of Care Code Est Pt Level 3 (80127) Diagnoses Multinodular thyroid E04.2
[2023-02-14 15:44] VITALS: BP 150/78; PULSE 66
== END 2023-02-14 16:13 | disposition home or self-care (01) ==
PROVIDERS: PCP Internal Medicine; Visit Provider Internal Medicine Endocrinology, Diabetes & Metabolism
DX: E04.2 Nontoxic multinodular goiter (principal)
CPT/HCPCS: 99213

== ENCOUNTER → 2023-02-14 15:40 | Outpatient (BNVA) | payer MEDICARE, SELFPAY | PROVIDERS: PCP Internal Medicine; Visit Provider Internal Medicine Endocrinology, Diabetes & Metabolism | DX: E04.2 Nontoxic multinodular goiter (principal); Z98.890 Other specified postprocedural states | CPT/HCPCS: 99212 ==

== ENCOUNTER 2024-02-13 14:27 | Outpatient (REF) | payer MEDICARE, SELFPAY ==
--- NOTE | ~2024-02-13 | US_ITS ---
EXAMINATION: US THYROID CLINICAL INFORMATION: Nontoxic multinodular goiter. COMPARISON: Ultrasound-guided thyroid biopsy 01/30/2023. Thyroid ultrasound 10/30/2022 and 04/24/2021. TECHNIQUE: Linear transducer grayscale and color Doppler examination with attention to the region of the thyroid. FINDINGS: SIZE: Measurements of the thyroid lobes and nodules are given in sagittal, anteroposterior and transverse dimensions respectively. Right Thyroid Lobe: 5.7 x 2.1 x 2.3 cm, volume 14.3 mL. Previously 5.6 x 2.5 x 1.9 cm, volume 13.9 mL. Parenchyma: The gland echotexture is heterogeneous. Thyroid vascularity is increased. Left Thyroid Lobe: 5.1 x 1.6 x 1.8 cm, volume 7.6 mL. Previously 4.4 x 1.3 x 1.4 cm, volume 4.2 mL. Parenchyma: The gland echotexture is heterogeneous. Thyroid vascularity is normal. Isthmus: 0.2 cm in maximum AP dimension. Previously 0.3 cm. Estimated total number of nodules greater than or equal to 1 cm: 2. Supervisor Nuclear Medicine nodules are described as follows: 1. Location: Right mid. Size: 0.8 x 0.6 x 0.8 cm, volume 0.2 mL. Previously: Not documented on the previous study. Nodule characteristics: Composition: Mixed cystic and solid (1). Echogenicity: Isoechoic (1). Shape: Not taller than wide (0). Margins: Ill-defined (0). Echogenic Foci: None (0). ACR TI-RADS total points: 2 ACR TI-RADS category: 2 2. Location: Right mid. Size: 1.1 x 0.9 x 1.3 cm, volume 0.7 mL. Previously: 1.4 x 1.3 x 1.7 cm, volume 1.6 mL. Nodule characteristics: Composition: Solid/almost completely solid (2). Echogenicity: Hypoechoic (2). Shape: Not taller than wide (0). Margins: Ill-defined (0). Echogenic Foci: Macrocalcifications (1). ACR TI-RADS total points: 5 Previous: 7 ACR TI-RADS category: 4 Previous: 5 Significant change in size (>/= 20% in 2 dimensions and minimal increase of 2 mm or 50% or greater increase in volume): No Change in features: Yes Change in ACR TI-RADS risk category: Yes 3. Location: Right inferior. Size: 1.4 x 0.8 x 1.2 cm, volume 0.7 mL. Previously: 2.1 x 1.6 x 1.6 cm, volume 2.8 mL. Nodule characteristics: Composition: Solid (2). Echogenicity: Isoechoic (1). Shape: Not taller than wide (0). Margins: Smooth (0). Echogenic Foci: None (0). ACR TI-RADS total points: 3 Previous: 3 ACR TI-RADS category: 3 Previous: 3 Significant change in size (>/= 20% in 2 dimensions and minimal increase of 2 mm or 50% or greater increase in volume): No Change in features: No Change in ACR TI-RADS risk category: No 4. Location: Left mid/inferior. Size: 0.9 x 0.7 x 0.9 cm, volume 0.3 mL. Previously: 1.1 x 1.0 x 1.1 cm, volume 0.6 mL. Nodule characteristics: Composition: Solid (2). Echogenicity: Isoechoic (1). Shape: Not taller than wide (0). Margins: Ill-defined (0). Echogenic Foci: None (0). ACR TI-RADS total points: 3 Previous: 3 ACR TI-RADS category: 3 Previous: 3 Significant change in size (>/= 20% in 2 dimensions and minimal increase of 2 mm or 50% or greater increase in volume): No Change in features: No Change in ACR TI-RADS risk category: No 5. Location: Left inferior. Size: 0.7 x 0.4 x 0.7 cm, volume 0.1 mL. Previously: Not documented on the previous study. Nodule characteristics: Composition: Solid/almost completely solid (2). Echogenicity: Isoechoic (1). Shape: Not taller than wide (0). Margins: Ill-defined (0). Echogenic Foci: None (0). ACR TI-RADS total points: 3 ACR TI-RADS category: 3 NODES: No lymphadenopathy is seen in the tissue surrounding the thyroid gland. US/US thyroid IMPRESSION: 1. There is an asymmetric goiter, right lobe greater than left. 2. There is heterogeneous thyroid echotexture, which can be associated with thyroiditis. 3. Multiple bilateral thyroid nodules are seen, as detailed. Recommend continued thyroid ultrasound surveillance. ACR TI-RADS RECOMMENDATION REFERENCE: Ultrasound-guided fine-needle aspiration, follow up ultrasound, no further followup. * TR1 (0 point) and TR2 (2 points): No FNA or followup * TR3 (3 points): FNA if more than or equal to 2.5 cm in maximum dimension, follow up ultrasound in 1, 3 and 5 years if 1.5 to 2.4 cm in maximum dimension. * TR4 (4-6 points): FNA if more than or equal to 1.5 cm in maximum dimension, follow up ultrasound in 1, 2, 3 and 5 years if 1 to 1.4 cm in maximum dimension. * TR5 (more than or equal to 7 points): FNA if more than or equal to 1 cm in maximum dimension, follow up ultrasound every year for 5 years if 0.5 to 0.9 cm in maximum dimension. * TR3, TR4 or TR5 nodules that are below the size threshold for follow up receive no followup. Electronically signed by: Josue Whaley MD 02/20/2024 05:02 PM EDT
== END 2024-02-13 14:28 | disposition home or self-care (01) ==
LOC: HO.US 14:27
PROVIDERS: Visit Provider Internal Medicine Endocrinology, Diabetes & Metabolism
DX: E04.2 Nontoxic multinodular goiter (principal)
CPT/HCPCS: 76536

== ENCOUNTER 2024-02-17 11:37 | Outpatient (AMB) | payer MEDICARE, SELFPAY ==
--- NOTE | 2024-02-17 11:38 | MHC.OFFVIS ---
Vital Signs 02/17/24 11:41 Height 5 ft 2 in Weight 118 lb 2.684 oz BMI 21.6 BP 132/58 L Blood Pressure Location Lt brachial Position Sitting Pulse 69 Pulse Source Pulse Oximeter Intake Visit Reasons: f/u MNG Intake Note: Patient present today for MNG follow up visit. Participant Administrator Required: No Accompanied by: Daughter Allergies lisinopril Allergy (Unknown, Verified 02/17/24 11:42) angioedema Medication List - Last Reconciled 02/17/24 by Korey Blunt MD amlodipine 10 mg PO DAILY blood pressure monitor (Blood Pressure Kit) As directed cholecalciferol (vitamin D3) 25 mcg PO DAILY cyanocobalamin (vitamin B-12) 1,000 mcg PO DAILY hydrochlorothiazide 12.5 mg PO QAM 30 days lovastatin 40 mg PO BEDTIME metformin 500 mg PO DAILY metoprolol succinate ER 25 mg PO DAILY HPI Comments Details: 88 YO Female with a PMHx subclinical hyperthyroidism who is seen in consultation at the request of her PCP for a multinodular thyroid. The patient last saw Dr. Mora on 11/15/2022. She had an US of the thyroid completed 10/30/2022 which revealed multiple bilateral thyroid nodules meeting indication for FNA biopsy. She reports feeling well and denies any compressive symptoms. She also denies any symptoms of hyper or hypothyroidism. She denies any personal history of head or neck irradiation. She denies any family history of thyroid cancer. Thyroid US: 10/30/2022 Right Thyroid Lobe: 5.6 x 2.5 x 1.9 cm, volume 13.9 mL. Previously 5.7 x 2.3 x 2.4 cm, volume 16.5 mL. Parenchyma: The gland echotexture is heterogeneous. Thyroid vascularity is normal. Left Thyroid Lobe: 4.4 x 1.3 x 1.4 cm, volume 4.2 mL. Previously 5.2 x 1.1 x 1.5 cm, volume 4.5 mL. Parenchyma: The gland echotexture is heterogeneous. Thyroid vascularity is normal. Isthmus: 0.3 cm in maximum AP dimension. Previously 0.3 cm. Estimated total number of nodules greater than or equal to 1 cm: 4. Stack Clerk nodules are described as follows: 1.? Location: Right mid. ?? ? Size: 0.6 x 0.9 x 1.0 cm, volume 0.3 mL. ?? ? Previously: Not seen on the previous study. ?? ? Nodule characteristics: ?? ? Composition: Mixed cystic and solid (1). ?? ? Echogenicity: Hyperechoic (1). ?? ? Shape: Not taller than wide (0). ?? ? Margins: Smooth (0). ?? ? Echogenic Foci: None (0). ? ACR TI-RADS total points: 2 ?? ? ACR TI-RADS category: 2 2.? Location: Right inferior. ?? ? Size: 1.4 x 1.3 x 1.7 cm, volume 1.6 mL. ?? ? Previously: 1.7 x 1.3 x 1.7 cm, volume 2.0 mL. ?? ? Nodule characteristics: ?? ? Composition: Solid (2). ?? ? Echogenicity: Isoechoic (1). ?? ? Shape: Not taller than wide (0) visually and appears slightly over measured by the contact lens flashing puncher. ?? ? Margins: Smooth (0). ?? ? Echogenic Foci: Macrocalcifications (1). No definite punctate echogenic foci. ?? ? ACR TI-RADS total points: 4 Previous: 4 ?? ? ACR TI-RADS category: 4 Previous: 4 ? Significant change in size (>/= 20% in 2 dimensions and minimal increase of 2 mm or 50% or greater increase in volume): No ?? ? Change in features: No ?? ? Change in ACR TI-RADS risk category: No 3.? Location: Right inferior. ?? ? Size: 2.1 x 1.6 x 1.6 cm, volume 2.8 mL. ?? ? Previously: 2.5 x 2.0 x 2.0 cm, volume 5.1 mL. ?? ? Nodule characteristics: ?? ? Composition: Solid (2). ?? ? Echogenicity: Hyperechoic (1). ?? ? Shape: Not taller than wide (0). ?? ? Margins: Ill-defined (0). ?? ? Echogenic Foci: None (0).? ACR TI-RADS total points: 3 Previous: 3 ?? ? ACR TI-RADS category: 3 Previous: 3 ? Significant change in size (>/= 20% in 2 dimensions and minimal increase of 2 mm or 50% or greater increase in volume): No ?? ? Change in features: No ?? ? Change in ACR TI-RADS risk category: No 4.? Location: Left inferior. ?? ? Size: 0.8 x 0.8 x 0.9 cm, volume 0.3 mL. ?? ? Previously: 1.3 x 0.8 x 0.7 cm, volume 0.4 mL. ?? ? Nodule characteristics: ?? ? Composition: Solid (2). ?? ? Echogenicity: Hyperechoic (1). ?? ? Shape: Not taller than wide (0). ?? ? Margins: Smooth (0). ?? ? Echogenic Foci: None (0). ? ACR TI-RADS total points: 3 Previous: 6 ?? ? ACR TI-RADS category: 3 Previous: 4 ? Significant change in size (>/= 20% in 2 dimensions and minimal increase of 2 mm or 50% or greater increase in volume): No ?? ? Change in features: Yes ?? ? Change in ACR TI-RADS risk category: Yes, is no longer taller than wide 5.? Location: Left inferior. ?? ? Size: 1.1 x 0.1 x 1.1 cm, volume 0.6 mL. ?? ? Previously: 1.0 x 0.7 x 0.9 cm, volume 0.3 mL. ?? ? Nodule characteristics: ?? ? Composition: Solid (2). ?? ? Echogenicity: Hyperechoic (1). ?? ? Shape: Not taller than wide (0). ?? ? Margins: Smooth (0). ?? ? Echogenic Foci: None (0).? ACR TI-RADS total points: 3 Previous: 3 ?? ? ACR TI-RADS category: 3 Previous: 3 ? Significant change in size (>/= 20% in 2 dimensions and minimal increase of 2 mm or 50% or greater increase in volume): Yes ?? ? Change in features: No ?? ? Change in ACR TI-RADS risk category: No NODES: No lymphadenopathy is seen in the tissue surrounding the thyroid gland. Labs: Laboratory Tests 01/06/22 08:11 TSH 0.48 Free T4 1.14 Status post FNA of several right and left thyroid nodule with benign cytology. He had ultrasound performed 2 days ago report is pending [facility] Medical History (Updated 02/01/23 @ 17:51 by Apoorva Paez MD) Multinodular thyroid Subclinical hyperthyroidism Vitamin D deficiency Chronic kidney disease (CKD) stage G3a/A1, moderately decreased glomerular filtration rate (GFR) between 45-59 mL/min/1.73 square meter and albuminuria creatinine ratio less than 30 mg/g Boutonniere deformity Thyroid nodule Diabetic nephropathy Hypertension Type 2 diabetes mellitus with hyperglycemia Surgical History History of thyroidectomy Hypercholesterolemia Family History Father Medical history unknown Mother Diabetes Social History Household Members Other:: daughter Housing: House Alcohol intake: never Patient Tobacco Use Status: Former Tobacco user Tobacco use type: Cigarette Years Smoked: stopped 2003 e-Cigarette/Vaping Use: Never Used Second Hand Smoke Exposure: No Advance Directives Date on File: 03/30/21 service: No Current occupational status: retired Cognitive needs: No Hearing needs: No Vision needs: Yes Physical Exam Vital Signs: BMI result Body Mass Index 21.6 Const Other: Thyroid gland is normal in size and weighs 15 g. There are no discrete nodules palpated Assessment & Plan Assessment & Plan (1) Thyroid nodule: Comment: May 2014 biopsy benign? Thyroidectomy, ultrasound 2019 Code(s): E04.1 - Nontoxic single thyroid nodule Category: Medical Plan: Plan as below (2) Multinodular thyroid: Comment: Biopsy January 2023 _neg Code(s): E04.2 - Nontoxic multinodular goiter Category: Medical Plan: This 88-year-old female with a history of multinodular goiter status post FNA of left and right thyroid nodules with benign cytology. She appears to be clinically euthyroid. Plan is review thyroid ultrasound report when available. Assuming ultrasound report shows stability and nodules , patient can follow up with primary care provider who could obtain an ultrasound only if patient becomes symptomatic and returned back to endocrinology as needed. There is no need to keep ordering follow-up ultrasounds considering patient's age and comorbidities Orders: Orders Free T4 (Free Thyroxine) Today E04.1 - Nontoxic single thyroid nodule Thyroid Stimulating Hormone Today E04.1 - Nontoxic single thyroid nodule Coding Level of Care Code Est Pt Level 3 (41296) Diagnoses Thyroid nodule E04.1 Multinodular thyroid E04.2
[2024-02-17 11:41] VITALS: BP 132/58; PULSE 69; BMI 21.6
== END 2024-02-17 11:54 | disposition home or self-care (01) ==
PROVIDERS: PCP Internal Medicine; Visit Provider Internal Medicine Endocrinology, Diabetes & Metabolism
DX: E04.1 Nontoxic single thyroid nodule (principal); E04.2 Nontoxic multinodular goiter
CPT/HCPCS: 99213

== ENCOUNTER → 2024-02-17 11:37 | Outpatient (BNVA) | payer MEDICARE, SELFPAY | PROVIDERS: PCP Internal Medicine; Visit Provider Internal Medicine Endocrinology, Diabetes & Metabolism | DX: E04.2 Nontoxic multinodular goiter (principal) | CPT/HCPCS: 99212 ==

== ENCOUNTER 2024-04-06 17:15 | Outpatient (AMB) | payer MEDICARE, SELFPAY ==
--- NOTE | 2024-04-06 17:27 | MHC.PC.OV ---
Vital Signs 04/06/24 17:32 04/06/24 17:59 Height 5 ft 2 in Weight 118 lb 4 oz BMI 21.6 BP 140/62 H 136/70 Blood Pressure Location Lt brachial Lt brachial Position Sitting Sitting Pulse 64 Pulse Source Pulse Oximeter Pulse Oximetry (%) 95 Oxygen Delivery Method Room Air Intake Visit Reasons: PE Intake Note: Patient is here today for a physical. Language Specialist Required: No Accompanied by: Daughter Allergies lisinopril Allergy (Unknown, Verified 04/06/24 17:33) angioedema Medication List - Last Reconciled 04/06/24 by Apoorva Paez MD amlodipine 10 mg PO DAILY blood pressure monitor (Blood Pressure Kit) As directed cholecalciferol (vitamin D3) 25 mcg PO DAILY cyanocobalamin (vitamin B-12) 1,000 mcg PO DAILY hydrochlorothiazide 12.5 mg PO QAM 30 days lovastatin 40 mg PO BEDTIME metformin 500 mg PO DAILY metoprolol succinate ER 25 mg PO DAILY Tobacco use date assessed: 04/06/24 Fall risk assessment: No Falls in past year Last assessed Fall Risk: 04/06/24 Dental Screening Dental Screen Date: 04/06/24 Did you have a dental visit in the last 12 months?: Yes Did you have a dental problem in the last 6 months where you did not have access to dental care?: No Was dental information given to patient?: Patient has dentist HPI PE HPI Details 88-year-old female with diabetes mellitus controlled hypertension hypercholesterolemia coming in for physical exam last seen in December 2022. With a multinodular thyroid seeing endocrinology May 2014 biopsy benign had a thyroidectomy. No need for follow-up ultrasounds. [facility] Medical History (Updated 04/06/24 @ 18:05 by Apoorva Paez MD) Multinodular thyroid Subclinical hyperthyroidism Vitamin D deficiency Chronic kidney disease (CKD) stage G3a/A1, moderately decreased glomerular filtration rate (GFR) between 45-59 mL/min/1.73 square meter and albuminuria creatinine ratio less than 30 mg/g Boutonniere deformity Thyroid nodule Diabetic nephropathy Hypertension Type 2 diabetes mellitus with hyperglycemia Surgical History History of thyroidectomy Hypercholesterolemia Family History Father Medical history unknown Mother Diabetes Social History Household Members Other:: daughter Housing: House Alcohol intake: never Patient Tobacco Use Status: Former Tobacco user Tobacco use type: Cigarette Years Smoked: stopped 2003 e-Cigarette/Vaping Use: Never Used Second Hand Smoke Exposure: No Advance Directives Date on File: 03/30/21 service: No Current occupational status: retired Cognitive needs: No Hearing needs: No Vision needs: Yes Questionnaire PHQ-9 Over the last 2 weeks, how often have you been bothered by any of the following problems? 1. Little interest or pleasure in doing things: not at all Source: Developed by Drs. Korey Sepulveda, Marilyn Cadet, Marcus Asif and colleagues, with an educational cary from [employer]. Thrive Questionnaire Date Thrive assessed: 07/10/22 SHYAM-7 AMB Questionnaire SHYAM-7 Date SHYAM - 7 assessed: 07/10/22 Source: Developed by Drs. Korey Sepulveda, Marilyn Cadet, Marcus Asif and colleagues, with an educational cary from [employer]. Review of Systems Const Denies poor appetite and Denies weakness Eyes Denies no additional complaints ENT Reports Normal hearing present, Denies dizziness, Denies nasal congestion, Denies tinnitus and Denies sore throat Card Denies chest pain, Denies syncope, Denies rapid heart rate and Denies dyspnea Resp Denies cough and Denies dyspnea GI Denies change in stool character, Reports constipation, Denies diarrhea, Denies nausea and Denies vomiting Denies urinary frequency, Denies difficulty voiding and Denies dysuria Neuro Reports Normal hearing present, Denies confusion, Denies dizziness, Denies syncope and Denies weakness Psych Denies confusion Physical exam (Primary Care) Vital Signs: Last Vital Signs Pulse 64 04/06/24 17:32 BP 140/62 H 04/06/24 17:32 Pulse Ox 95 04/06/24 17:32 Oxygen Delivery Method Room Air 04/06/24 17:32 BMI result Body Mass Index 21.6 Tobacco/Smoking Status: Tobacco use Status Tobacco use date assessed 04/06/24 04/06/24 17:34 Patient Tobacco Use Status Former Tobacco user 04/06/24 17:28 Tobacco use type Cigarette 04/06/24 17:28 e-Cigarette/Vaping Use Never Used 04/06/24 17:28 Thrive Assessment: Date of Thrive Assessment Date Thrive assessed 07/10/22 04/06/24 17:28 Const General: No confusion Orientation/consciousness: No confusion HENMT Other: impacted cerumen R , L open, TM intact Head: Yes normocephalic Ears: external ears normal Face and sinus: Yes normal facial exam Mouth: moist mucous membranes Throat: Yes tonsils normal Eyes Conjunctivae: conjunctivae normal Pupils: Equal, round and reactive pupils present and Pupil accommodation reflex normal Direct Ophthalmoscopy: normal light reflex Neck Neck: No lymphadenopathy Thyroid: Thyroid normal Chest Chest palpation & inspection: normal inspection of the chest Resp Effort & Inspection: normal respiratory effort and no audible wheezes Auscultation: clear to auscultation bilaterally, no crackles, no wheezes and lung sounds not diminished Cardio Rate: regular rate Rhythm: regular rhythm Peripheral pulses: radial pulses present and dorsalis pedis present GI Other: declined Palpation (GI): no masses Auscultation: normal bowel sounds and normoactive bowel sounds Rectal Exam - Female: deferred Skin Other: multiple subcentimeter pigmented neci diffuse Rashes: no rashes Neuro General: No confusion Cranial nerves: Yes Equal, round and reactive pupils present and Yes Normal hearing present Cognition (Neuro): normal cognition Gait exam (Neuro): Normal gait present Motor exam (neuro): 5/5 motor strength present throughout Deep tendon reflexes (DTR's): Right brachioradialis reflex intensity grade: 2+, Left brachioradialis reflex intensity grade: 2+, Right patellar reflex intensity grade: 2+ and Left patellar reflex intensity grade: 2+ Extrem General: No edema Office Procedures Cerumen Removal From which ear canal was the cerumen removed: right Removal: otoscope w/curette and cerumen loop/spoon Notes: patient tolerated procedure well, no complications and ear canal clear [id number] Wax Removal by Spoon/Curette Flu Questionnaire Does the patient have a severe egg allergy?: No Immunizations Fluarix Triv [id number] (PF) 45 mcg (15 mcg x 3)/0.5 mL IM syringe Performing Provider: Apoorva Paez MD [facility] Documented (not given) by: JOSE RAFAEL Sevilla on 04/06/24 17:35 Reason Not Given: Patient Refused Coding Level of Care Code Est Pt Level 3 (96276) Est Pt Prev Care >65y(54592) Diagnoses Annual physical exam Z00.00 Type 2 diabetes mellitus with hyperglycemia, without long-term current use of insulin E11.65 Diabetes mellitus coding compliance manager insulin use: without coding compliance manager use Essential hypertension I10 Hypertension type: essential hypertension Hypercholesterolemia E78.00 Diabetic nephropathy associated with type 2 diabetes mellitus E11.21 Diabetes mellitus type: type 2 Multinodular thyroid E04.2 Multiple pigmented nevi D22.9 Impacted cerumen of right ear H61.21 CPT Codes Office Procedure - CPT: 91127-Lgx Wax Removal by Spoon/Curette ([id number]) Assessment & Plan Assessment & Plan (1) Annual physical exam: Code(s): Z00.00 - Encounter for general adult medical examination without abnormal findings Category: Medical Plan: Patient is advised to eat healthy, keep well hydrated, keep active and have adequate sleep. (2) Type 2 diabetes mellitus with hyperglycemia: Code(s): E11.65 - Type 2 diabetes mellitus with hyperglycemia Category: Medical Qualifiers: Diabetes mellitus coding compliance manager insulin use: without coding compliance manager use Qualified Code(s): E11.65 - Type 2 diabetes mellitus with hyperglycemia Plan: Decrease the amount of carbohydrate intake, pasta, bread, rice and potatoes are all sugar and that is aside from all the sweet stuff, remember that fruits are good but they are Sweet also. Hemoglobin A1c goal of less than 7.0. On metformin 500 mg once a day (3) Hypertension: Code(s): I10 - Essential (primary) hypertension Category: Medical Qualifiers: Hypertension type: essential hypertension Qualified Code(s): I10 - Essential (primary) hypertension Plan: Continue with blood pressure medication. Decrease salt intake and exercise takes metoprolol 25 mg once a day hydrochlorothiazide 12.5 mg once a day and amlodipine 10 mg once a day (4) Hypercholesterolemia: Code(s): E78.00 - Pure hypercholesterolemia, unspecified Category: Surgical Plan: Avoid fried foods, chicken skin, eggs, butter margarine, pastries and meat. Be it pork or beef they have a lot of cholesterol LDL goal of less than 100 and triglyceride of less than 150 patient on lovastatin 40 mg at bedtime (5) Diabetic nephropathy: Code(s): E11.21 - Type 2 diabetes mellitus with diabetic nephropathy Category: Medical Qualifiers: Diabetes mellitus type: type 2 Qualified Code(s): E11.21 - Type 2 diabetes mellitus with diabetic nephropathy Plan: Avoid NSAIDs continue to control diabetes and hypertension. (6) Multinodular thyroid: Comment: Biopsy January 2023 _neg Code(s): E04.2 - Nontoxic multinodular goiter Category: Medical Plan: Patient follows up with endocrinology no need to get serial ultrasounds. (7) Multiple pigmented nevi: Code(s): D22.9 - Melanocytic nevi, unspecified Category: Medical Plan: Dermatology referral done (8) Impacted cerumen of right ear: Code(s): H61.21 - Impacted cerumen, right ear Category: Medical Plan: scoop , no irrigation done TM intact Orders: Orders AMB Hemoglobin A1c Today E11.65 - Type 2 diabetes mellitus with hyperglycemia Influenza [id number] Immunization Today Z23 - Encounter for immunization Comprehensive Met. Panel Today E11.65 - Type 2 diabetes mellitus with hyperglycemia Hemoglobin A1c Today E11.65 - Type 2 diabetes mellitus with hyperglycemia Thyroid Stimulating Hormone Today E11.65 - Type 2 diabetes mellitus with hyperglycemia Vitamin D 25-OH Total Today E11.65 - Type 2 diabetes mellitus with hyperglycemia Creatinine Urine Today E11.65 - Type 2 diabetes mellitus with hyperglycemia Microalbumin, Random (w Creat) Today E11.65 - Type 2 diabetes mellitus with hyperglycemia Complete Blood Count Auto Diff Today E11.65 - Type 2 diabetes mellitus with hyperglycemia Free T4 (Free Thyroxine) Today E11.65 - Type 2 diabetes mellitus with hyperglycemia Lipid Panel Today E11.65 - Type 2 diabetes mellitus with hyperglycemia, E78.00 - Pure hypercholesterolemia, unspecified Vitamin B12 and Folate Today E11.65 - Type 2 diabetes mellitus with hyperglycemia UA CC w/rflx Micro + Cult Today E11.65 - Type 2 diabetes mellitus with hyperglycemia, R30.0 - Dysuria Referrals Dermatology Referral D22.9 - Melanocytic nevi, unspecified
[2024-04-06 17:32] VITALS: BP 140/62; PULSE 64; O2SAT 95; BMI 21.6
[2024-04-06 17:59] VITALS: BP 136/70
== END 2024-04-06 18:35 | disposition home or self-care (01) ==
LOC: HO.HMCH 17:16
PROVIDERS: PCP Internal Medicine; Visit Provider Internal Medicine
DX: Z00.00 Encounter for general adult medical examination without abnormal findings (principal); E11.65 Type 2 diabetes mellitus with hyperglycemia; E11.21 Type 2 diabetes mellitus with diabetic nephropathy; I10 Essential (primary) hypertension; H61.21 Impacted cerumen, right ear; E78.00 Pure hypercholesterolemia, unspecified; E04.2 Nontoxic multinodular goiter; D22.9 Melanocytic nevi, unspecified

== ENCOUNTER → 2024-04-06 17:15 | Outpatient (BNVA) | payer MEDICARE, SELFPAY | PROVIDERS: PCP Internal Medicine; Visit Provider Internal Medicine | DX: Z00.01 Encounter for general adult medical examination with abnormal findings (principal); E11.65 Type 2 diabetes mellitus with hyperglycemia; I10 Essential (primary) hypertension; E78.00 Pure hypercholesterolemia, unspecified; E04.2 Nontoxic multinodular goiter; E11.21 Type 2 diabetes mellitus with diabetic nephropathy; H61.22 Impacted cerumen, left ear | CPT/HCPCS: 69210; 99212; 99397 ==

== ENCOUNTER 2024-07-30 14:22 | Outpatient (AMB) | payer MEDICARE, SELFPAY ==
--- NOTE | 2024-07-30 14:26 | MHC.PC.OV ---
Vital Signs 07/30/24 14:27 Height 5 ft 2 in Weight 117 lb 2 oz BMI 21.4 BP 126/82 Blood Pressure Location Lt brachial Position Sitting Pulse 88 Pulse Source Pulse Oximeter Pulse Oximetry (%) 96 Oxygen Delivery Method Room Air Intake Visit Reasons: 3MONTHS Requisition Approver Required: No Accompanied by: Self / Same As Patient Allergies lisinopril Allergy (Unknown, Verified 07/30/24 14:29) angioedema Tobacco use date assessed: 07/30/24 Fall risk assessment: No Falls in past year Last assessed Fall Risk: 07/30/24 Dental Screening Dental Screen Date: 07/30/24 Did you have a dental visit in the last 12 months?: No Did you have a dental problem in the last 6 months where you did not have access to dental care?: No Was dental information given to patient?: No [facility] Medical History (Updated 07/30/24 @ 14:41 by Apoorva Peaz MD) Multinodular thyroid Subclinical hyperthyroidism Vitamin D deficiency Chronic kidney disease (CKD) stage G3a/A1, moderately decreased glomerular filtration rate (GFR) between 45-59 mL/min/1.73 square meter and albuminuria creatinine ratio less than 30 mg/g Boutonniere deformity Thyroid nodule Diabetic nephropathy Hypertension Type 2 diabetes mellitus with hyperglycemia Surgical History History of thyroidectomy Hypercholesterolemia Family History Father Medical history unknown Mother Diabetes Social History Household Members Other:: daughter Housing: House Alcohol intake: never Patient Tobacco Use Status: Former Tobacco user Tobacco use type: Cigarette Years Smoked: stopped 2003 e-Cigarette/Vaping Use: Never Used Second Hand Smoke Exposure: No Advance Directives Date on File: 03/30/21 service: No Current occupational status: retired Cognitive needs: No Hearing needs: No Vision needs: Yes Questionnaire PHQ-9 Over the last 2 weeks, how often have you been bothered by any of the following problems? 1. Little interest or pleasure in doing things: not at all 2. Feeling down, depressed, or hopeless: not at all 3. Trouble falling or staying asleep, or sleeping too much: not at all 4. Feeling tired or having little energy: not at all 5. Poor appetite or overeating: not at all 6. Feeling bad about yourself - or that you are a failure or have let yourself or your family down: not at all 7. Trouble concentrating on things, such as reading the newspaper or watching television: not at all 8. Moving or speaking so slowly that other people could have noticed. Or the opposite - being so fidgety or restless that you have been moving around a lot more than usual: not at all 9. Thoughts that you would be better off or of hurting yourself in some way: not at all Total score: 0 Source: Developed by Drs. Korey Sepulveda, Marilyn Cadet, Marcus Asif and colleagues, with an educational cary from [employer]. Thrive Questionnaire Date Thrive assessed: 07/30/24 I am a: Patient What is your living situation today?: I have a steady place to live Within the past 12 months, did the food you bought not last and you didn't have the money to get more?: Never true Within the past 12 months, did you worry whether your food would run out before you got money to buy more?: Never true Do you have trouble paying for medicines?: No Do you have trouble getting transportation to medical appointments?: No Do you have trouble paying your heating and electricity bill?: No Do you have trouble taking care of your child, family member or friend?: No Do you have trouble with day-to-day activities such as bathing, preparing meals, shopping, managing finances, etc.?: No Are you currently unemployed and looking for a job?: No Are you interested in more education?: No Please select the resources that you would like help with: None Currently or been in a relationship where the following occur: No concerns reported THRIVE Score: 0 AUDIT C Alcohol Use Questionnaire (AUDIT-C) 1. How often do you have a drink containing alcohol?: Never 3. How often do you have six or more drinks on one occasion?: Never Total Score: 0 SHYAM-7 AMB Questionnaire SHYAM-7 Date SHYAM - 7 assessed: 07/30/24 Feeling nervous, anxious, or on edge: 0 = Not at all Not being able to stop or control worryin = Not at all Worrying too much about different things: 0 = Not at all Trouble relaxin = Not at all Being so restless that it is hard to sit still: 0 = Not at all Becoming easily annoyed or irritable: 0 = Not at all Feeling afraid as if something awful might happen: 0 = Not at all Total SHYAM-7 score (0-4 normal; 5-9 mild; 10-14 moderate; 15-21 severe): 0 Source: Developed by Drs. Korey Sepulveda, Marilyn Cadet, Marcus Asif and colleagues, with an educational cary from [employer]. Physical exam (Primary Care) Vital Signs: Oxygen Delivery Method Room Air 07/30/24 14:27 Tobacco/Smoking Status: Tobacco use Status Tobacco use date assessed 07/30/24 07/30/24 14:32 Patient Tobacco Use Status Former Tobacco user 07/30/24 14:32 Tobacco use type Cigarette 07/30/24 14:32 e-Cigarette/Vaping Use Never Used 07/30/24 14:32 PHQ-9: PHQ-9 Score PHQ-9: Total score 0 07/30/24 14:35 Thrive Assessment: Date of Thrive Assessment Date Thrive assessed 07/30/24 07/30/24 14:35 Currently or been in a relationship where the following occur: No concerns reported Const General: alert; No acute distress Eyes Conjunctivae: conjunctivae normal Resp Auscultation: clear to auscultation bilaterally Cardio Rate: regular rate Rhythm: regular rhythm GI Inspection: Yes normal to inspection Extrem General: Yes normal to inspection and No edema Coding Level of Care Code Est Pt Level 4 (25354) Complex EM visit Add On G2211 Diagnoses Type 2 diabetes mellitus with hyperglycemia, without long-term current use of insulin E11.65 Diabetes mellitus ferry terminal agent insulin use: without alf use Essential hypertension I10 Hypertension type: essential hypertension Hypercholesterolemia E78.00 Multinodular thyroid E04.2 Assessment & Plan Assessment & Plan (1) Type 2 diabetes mellitus with hyperglycemia: Code(s): E11.65 - Type 2 diabetes mellitus with hyperglycemia Category: Medical Qualifiers: Diabetes mellitus ferry terminal agent insulin use: without alf use Qualified Code(s): E11.65 - Type 2 diabetes mellitus with hyperglycemia Plan: Decrease the amount of carbohydrate intake, pasta, bread, rice and potatoes are all sugar and that is aside from all the sweet stuff, remember that fruits are good but they are Sweet also. Hemoglobin A1c goal of less than 7.0 patient on metformin 500 mg once a day (2) Hypertension: Code(s): I10 - Essential (primary) hypertension Category: Medical Qualifiers: Hypertension type: essential hypertension Qualified Code(s): I10 - Essential (primary) hypertension Plan: Continue with blood pressure medication. Decrease salt intake and exercise on amlodipine 10 mg once a day hydrochlorothiazide 12.5 mg once a day and metoprolol 25 mg once a day (3) Hypercholesterolemia: Code(s): E78.00 - Pure hypercholesterolemia, unspecified Category: Surgical Plan: Avoid fried foods, chicken skin, eggs, butter margarine, pastries and meat. Be it pork or beef they have a lot of cholesterol LDL goal of less than 100 and triglyceride of less than 150 on lovastatin 40 mg once a day (4) Multinodular thyroid: Comment: Biopsy January 2023 _neg, 02/2024 Code(s): E04.2 - Nontoxic multinodular goiter Category: Medical Plan: Will continue yearly surveillance Plan History of Present Illness The patient is an 88-year-old female presenting for a follow-up visit concerning her ongoing medical conditions, specifically focusing on diabetes mellitus, hypertension, hypercholesterolemia, and thyroid nodule management. Previous surveillance characterized the thyroid issues and prescribed ongoing medical management, including maintaining blood glucose and cholesterol levels within specified limits. The patient's main concern during this visit related to the ocular symptoms of tearing in the left eye, without significant pain, suggestive of dry eye syndrome previously diagnosed. The patient has adhered to prior recommendations of using lubricating eye drops and was educated on maintaining hand hygiene to prevent exacerbating the condition. Regular monitoring of her blood parameters has been established to assess her overall chronic condition management. Health Maintenance - Hemoglobin A1c target of less than 7.0 - Blood pressure control with amlodipine, hydrochlorothiazide, and metoprolol - Lipid management with LDL goal of less than 100 mg/dL and triglycerides less than 150 mg/dL using lovastatin - Thyroid ultrasound surveillance - Ocular health management with lubricating eye drops for dry eyes - Regular hand hygiene advice to prevent infections Social History - Nutrition: The patient reports eating well with good meals. - Functional Status: The patient has maintained activities consistent with managing her chronic conditions. - Family Status: No specific details were discussed. - Housing Status: Not discussed. - Substance Use: Not discussed. Review of Systems - Ophthalmologic: Reports tearing of left eye without pain; denies swelling at the time of visit, but past swelling due to rubbing. - Respiratory: Denies coughing and breathing problems. - Gastrointestinal: Denies constipation; reports good bowel movements. - Hydration: Reports adequate water intake. Physical Exam - Ophthalmologic- Left eye tearing noted; no current swelling observed. - General- No swelling noted; reports adequate hydration. - Respiratory- Breathing in and out regular and unlabored. Results - Labs: Blood work completed in January 2023; upcoming blood work scheduled for Saturday, with fasting required. Plan 1. 0 and managing blood pressure and cholesterol levels with the specified medications efficiently. It is necessary that she continues using [id number] lubricating drops for her dry eye syndrome and ensures good hand hygiene to prevent infection. Further blood work will be completed, and results will be reviewed in a follow-up appointment. Proper fasting for the blood work has been emphasized alongside bringing up specific concerns in future visits.: Patient was informed and verbally consented to the use of an ambient scribe for clinic note documentation during this visit. Discussion Notes During our conversation, I emphasized the importance of adhering to her medical regimen for managing diabetes, hypertension, and cholesterol. I explained how maintaining optimal levels affects long-term health outcomes. We reviewed the risks and benefits of her current medications and the need for continuous monitoring, especially due to her age. For her eye symptoms, I emphasized the use of [id number] eye drops and maintaining good hand hygiene. We discussed the need for blood work on Saturday morning and I ensured she understood the fasting requirements. Patient Instructions - Continue current medications: metformin, amlodipine, hydrochlorothiazide, metoprolol, and lovastatin as prescribed. - Use lubricating eye drops as needed for dry eyes. - Practice regular hand washing, especially after touching potentially contaminated surfaces. - Complete blood work on Saturday after fasting for 8 hours; no food after Saturday dinner, only sips of water. - Report any new or worsening symptoms. - Follow up after blood work is done or sooner if needed.
[2024-07-30 14:27] VITALS: BP 126/82; PULSE 88; O2SAT 96; BMI 21.4
--- OUTSIDE RECORDS SUMMARY | 2024-07-30 17:32 | XMS_ITS | Clinical Summary ---
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 Name Role Phone Apoorva Paez MD Primary Care Provider [phone] Allergies No known active allergies Medications aspirin (ST DEBRA) 81 MG EC tablet Take 1 tablet by mouth 1 (one) time each day Active cholecalciferol (VITAMIN D-3) 25 MCG (1000 UT) capsule Take 1 capsule by mouth 1 (one) time each day Active lovastatin (MEVACOR) 40 MG tablet Take 1 tablet by mouth 1 (one) time each day Active metFORMIN (GLUCOPHAGE) 500 MG tablet Take 1 tablet by mouth 1 (one) time each day Active metoprolol succinate XL (TOPROL-XL) 25 MG 24 hr tablet Take 1 tablet by mouth 1 (one) time each day Active amLODIPine (NORVASC) 10 MG tablet 09/19/2020 Active cyanocobalamin (VITAMIN B-12) 1000 MCG tablet 03/02/2021 Act verena Active Problems Problem Noted Date Diagnosed Date Chronic kidney disease 09/20/2020 Diabetes mellitus 09/20/2020 Essential hypertension 09/20/2020 Family History Medical History Relation Comments Diabetes Mother Hypertension Sibling Relation Status Comments Mother Sibling Social History Tobacco Use Types Packs/Day Years Used Date Smoking Tobacco: Former Cigarettes Q uit: 06/03/2001 Smokeless Tobacco: Never Alcohol Use Standard Drinks/Week Comments No 0 (1 standard drink = 0.6 oz pur e alcohol) Comments Unknown Sex and Gender Information Value Date Recorded Sex Assigned at Not on file Legal Sex Female 5:03 PM EST Gender Identity Not on file Sexual Orientation Not on file Last Filed Vital Signs Vital Sign Reading Time Taken Comments Blood Pressure 102/60 03/27/2021 1:20 PM EDT Pulse 64 03/27/2021 1:20 PM EDT Temperature - - Respiratory Rate - - Oxygen Saturation 97% 03/27/2021 1:20 PM EDT Inhaled Oxygen Concentration - - Weight 58.1 kg (128 lb) 03/27/2021 1:20 PM EDT Height 157.5 cm (5' 2 ) 03/27/2021 1:20 PM EDT Body Mass Index 23.41 03/27/2021 1:20 PM EDT Plan of Treatment Health Maintenance Due Date Last Done Comments Pneumococcal Vaccine: 65+ Ye ars (2 of 2 - PCV) 08/24/2014 08/24/2013 Diabetes: Hemoglobin A1C 07/04/2020 Diabetes: Ophthalmology Exam 07/04/2020 Diabetes: Pedal Pulse Checked 07/04/2020 Diabetes: Sensory Foot Exam 07/04/2020 Diabetes: Visual Foot Exam 07/04/2020 Influenza Vaccine (#1) 2024 Hepatitis B Vaccine Aged Out No longe r eligible based on patient's age to complete this topic Insurance [id number] MEDICARE [facility] MEDICARE Care Teams Casting Machine Operator Helper Relationship Specialty Start Date End Date Apoorva Paez MD [facility] [address] [place], [place] PCP - General 06/13/20
== END 2024-07-30 15:16 | disposition home or self-care (01) ==
PROVIDERS: PCP Internal Medicine; Visit Provider Internal Medicine
DX: E11.65 Type 2 diabetes mellitus with hyperglycemia (principal); I10 Essential (primary) hypertension; E78.00 Pure hypercholesterolemia, unspecified; E04.2 Nontoxic multinodular goiter

== ENCOUNTER → 2024-07-30 14:22 | Outpatient (BNVA) | payer MEDICARE, SELFPAY | PROVIDERS: PCP Internal Medicine; Visit Provider Internal Medicine | DX: E11.65 Type 2 diabetes mellitus with hyperglycemia (principal); I10 Essential (primary) hypertension; E78.00 Pure hypercholesterolemia, unspecified; E04.2 Nontoxic multinodular goiter | CPT/HCPCS: 99212 ==

== ENCOUNTER 2024-08-08 09:00 | Outpatient (REF) | payer MEDICARE, SELFPAY ==
[2024-08-08 10:01] LABS: MANUAL DIFF FLAG NO
[2024-08-08 10:32] LABS: Basophils Percent Auto 0.9 % (0-2); Eosinophils Absolute Auto 0.1 X10*3/uL (0.0-0.4); Eosinophils Percent Auto 2.6 % (0-4); Hematocrit 43.4 % (37.0-47.0); Hemoglobin 13.9 g/dl (12.0-16.0); Imm Gran Abs Auto 0.01 X10*3/uL (0.00-0.03); Imm Gran Pct Auto 0.2 % (0.0-0.4); Lymphocytes Absolute Auto 1.8 X10*3/uL (1.2-4.9); Lymphocytes Percent Auto 42.8 % (20-40); Mean Corpuscular Hemoglobin 27.3 pg (27.0-33.0); Mean Corpuscular Volume 85.1 fL (80.0-98.0); Mean Platelet Volume 11.6 fL (9.4-12.3); Monocytes Absolute Auto 0.6 X10*3/uL (0.1-1.2); Monocytes Percent Auto 14.5 % (2-11); Neutrophils Absolute Auto 1.7 x10*3/uL (2.0-8.3); Platelet Count 207 X10*3/uL (160-400); White Blood Count 4.3 X10*3/uL (4.8-10.8)
[2024-08-08 10:45] LABS: Estimated Average Glucose 126 mg/dL; Total Hemoglobin (HGBA1C) 3570.9933 umol/L
[2024-08-08 10:51] LABS: Appearance Urine Clear; Color Urine Yellow; Glucose Urine UA Negative (Negative); Leukocyte Esterase Urine Trace (Negative); Nitrite Urine Negative (Negative); PH 6.5 (5.0-9.0); Specific Gravity - Urine 1.015 (1.005-1.025); UMIC TRIGGER UACC YES; Urine Blood Negative (Negative); Urine Ketones Negative (Negative); Urine Protein Trace mg/dL (Neg-Trace)
[2024-08-08 10:59] LABS: Bacteria Urine None Seen (None Seen); Hyaline Casts Urine 0-2 /LPF (0-2); RBC Urine 0-2 /HPF (0-2); Squamous Epithelial Cell Urine 0-2 /HPF (0-2); UACC Culture Trigger YES
[2024-08-08 11:08] LABS: Alanine Aminotransferase 13 U/L (0-31); Albumin Level 4.3 g/dL (3.5-5.0); Alkaline Phosphatase 84 U/L (39-117); Anion Gap 15 (12-20); Aspartate Amino Transferase 20 U/L (5-31); Bilirubin Total 0.5 mg/dL (0.0-1.0); Blood Urea Nitrogen 18 mg/dL (9-16); Calcium 9.9 mg/dL (8.4-10.2); Carbon Dioxide 27 mmol/L (22-29); Chloride 104 mmol/L (96-108); Cholesterol 159 mg/dL (<200); Estimated Glomerular Filt Rate 43; Glucose Random 85 mg/dL (60-115); HDL Cholesterol 53 mg/dL (>40); LDL Cholesterol Calculated 90 mg/dL (<100); Potassium 4.6 mmol/L (3.3-5.1); Sodium 141 mmol/L (135-145); Total Protein 8.4 g/dL (6.5-8.0); Triglycerides 83 mg/dL (<150)
[2024-08-08 11:18] LABS: Free T4 (Free Thyroxine) 1.21 ng/dL (0.71-1.85); Thyroid Stimulating Hormone 0.47 uIU/mL (0.32-4.0); Vitamin D 25-OH Total 66.7 ng/mL (>30)
[2024-08-08 11:37] LABS: Folate 5.9 ng/mL (> or = 4.0); Vitamin B12 665 pg/mL (200-900)
[2024-08-08 12:02] LABS: Creatinine Urine 108.87 mg/dL
[2024-08-08 12:03] LABS: Creatinine Urine 102.95 mg/dL; Microalbum/Creatinine Ratio Ur 86.4 ug/mg cr (<30)
== END 2024-08-08 09:01 | disposition home or self-care (01) ==
LOC: HO.LAB 09:00
PROVIDERS: PCP Internal Medicine; Visit Provider Internal Medicine
DX: E11.65 Type 2 diabetes mellitus with hyperglycemia (principal); E78.00 Pure hypercholesterolemia, unspecified; R30.0 Dysuria
CPT/HCPCS: 36415; 80053; 80061; 81001; 82043; 82306; 82570; 82607; 82746; 83036; 84439; 84443; 85025; 87086

== ENCOUNTER 2024-11-05 14:25 | Outpatient (AMB) | payer MEDICARE, SELFPAY ==
[2024-11-05 14:27] VITALS: BP 130/70; PULSE 70; O2SAT 95; BMI 21.8
--- NOTE | 2024-11-05 14:27 | MHC.PC.OV ---
Vital Signs 11/05/24 14:27 Height 5 ft 2 in Weight 119 lb BMI 21.8 BP 130/70 Blood Pressure Location Lt brachial Position Sitting Pulse 70 Pulse Source Pulse Oximeter Pulse Oximetry (%) 95 Oxygen Delivery Method Room Air Intake Visit Reasons: DM Key Person Required: No Accompanied by: Self / Same As Patient Allergies lisinopril Allergy (Unknown, Verified 11/05/24 14:28) angioedema Tobacco use date assessed: 11/05/24 Fall risk assessment: No Falls in past year Last assessed Fall Risk: 11/05/24 Dental Screening Dental Screen Date: 11/05/24 Did you have a dental visit in the last 12 months?: No Did you have a dental problem in the last 6 months where you did not have access to dental care?: No Was dental information given to patient?: No [facility] Medical History (Updated 07/30/24 @ 14:41 by Apoorva Paez MD) Multinodular thyroid Subclinical hyperthyroidism Vitamin D deficiency Chronic kidney disease (CKD) stage G3a/A1, moderately decreased glomerular filtration rate (GFR) between 45-59 mL/min/1.73 square meter and albuminuria creatinine ratio less than 30 mg/g Boutonniere deformity Thyroid nodule Diabetic nephropathy Hypertension Type 2 diabetes mellitus with hyperglycemia Surgical History History of thyroidectomy Hypercholesterolemia Family History Father Medical history unknown Mother Diabetes Social History Household Members Other:: daughter Housing: House Alcohol intake: never Patient Tobacco Use Status: Former Tobacco user Tobacco use type: Cigarette Years Smoked: stopped 2003 e-Cigarette/Vaping Use: Never Used Second Hand Smoke Exposure: No Advance Directives Date on File: 03/30/21 service: No Current occupational status: retired Cognitive needs: No Hearing needs: No Vision needs: Yes Questionnaire PHQ-9 Over the last 2 weeks, how often have you been bothered by any of the following problems? 1. Little interest or pleasure in doing things: not at all 2. Feeling down, depressed, or hopeless: not at all 3. Trouble falling or staying asleep, or sleeping too much: not at all 4. Feeling tired or having little energy: not at all 5. Poor appetite or overeating: not at all 6. Feeling bad about yourself - or that you are a failure or have let yourself or your family down: not at all 7. Trouble concentrating on things, such as reading the newspaper or watching television: not at all 8. Moving or speaking so slowly that other people could have noticed. Or the opposite - being so fidgety or restless that you have been moving around a lot more than usual: not at all 9. Thoughts that you would be better off or of hurting yourself in some way: not at all Total score: 0 Source: Developed by Drs. Korey Sepulveda, Marilyn Cadet, Marcus Asif and colleagues, with an educational cary from [employer]. Thrive Questionnaire Date Thrive assessed: 11/05/24 I am a: Patient What is your living situation today?: I have a steady place to live Within the past 12 months, did the food you bought not last and you didn't have the money to get more?: Never true Within the past 12 months, did you worry whether your food would run out before you got money to buy more?: Never true Do you have trouble paying for medicines?: No Do you have trouble getting transportation to medical appointments?: No Do you have trouble paying your heating and electricity bill?: No Do you have trouble taking care of your child, family member or friend?: No Do you have trouble with day-to-day activities such as bathing, preparing meals, shopping, managing finances, etc.?: No Are you currently unemployed and looking for a job?: No Are you interested in more education?: No Please select the resources that you would like help with: None Currently or been in a relationship where the following occur: No concerns reported THRIVE Score: 0 AUDIT C Alcohol Use Questionnaire (AUDIT-C) 1. How often do you have a drink containing alcohol?: Never 3. How often do you have six or more drinks on one occasion?: Never Total Score: 0 SHYAM-7 AMB Questionnaire SHYAM-7 Date SHYAM - 7 assessed: 11/05/24 Feeling nervous, anxious, or on edge: 0 = Not at all Not being able to stop or control worryin = Not at all Worrying too much about different things: 0 = Not at all Trouble relaxin = Not at all Being so restless that it is hard to sit still: 0 = Not at all Becoming easily annoyed or irritable: 0 = Not at all Feeling afraid as if something awful might happen: 0 = Not at all Total SHYAM-7 score (0-4 normal; 5-9 mild; 10-14 moderate; 15-21 severe): 0 Source: Developed by Drs. Korey Sepulveda, Marilyn Cadet, Marcus Asif and colleagues, with an educational cary from [employer]. Physical exam (Primary Care) Vital Signs: Last Vital Signs Pulse 70 11/05/24 14:27 BP 130/70 11/05/24 14:27 Pulse Ox 95 11/05/24 14:27 Oxygen Delivery Method Room Air 11/05/24 14:27 BMI result Body Mass Index 21.8 Tobacco/Smoking Status: Tobacco use Status Tobacco use date assessed 11/05/24 11/05/24 14:29 Patient Tobacco Use Status Former Tobacco user 11/05/24 14:29 Tobacco use type Cigarette 11/05/24 14:29 e-Cigarette/Vaping Use Never Used 11/05/24 14:29 PHQ-9: PHQ-9 Score PHQ-9: Total score 0 11/05/24 14:46 Thrive Assessment: Date of Thrive Assessment Date Thrive assessed 11/05/24 11/05/24 14:29 Currently or been in a relationship where the following occur: No concerns reported Const General: alert; No acute distress Eyes Conjunctivae: conjunctivae normal Resp Auscultation: clear to auscultation bilaterally Cardio Rate: regular rate Rhythm: regular rhythm GI Inspection: Yes normal to inspection Extrem General: Yes normal to inspection and No edema Results AMB Hemoglobin A1c AMB Hemoglobin A1c 6.1 % Last Edit by MANSI Grewal on 11/05/24 14:47 Results Reviewed Results Reviewed: Laboratory Last Values Hgb A1c (Clinic) 6.1 % (4.0-6.0) H 11/05/24 14:29 Coding Level of Care Code Est Pt Level 4 (54286) Complex EM visit Add On G2211 Diagnoses Type 2 diabetes mellitus with hyperglycemia, without long-term current use of insulin E11.65 Diabetes mellitus long term care administrator insulin use: without long term care administrator use Essential hypertension I10 Hypertension type: essential hypertension Hypercholesterolemia E78.00 Diabetic nephropathy associated with type 2 diabetes mellitus E11.21 Diabetes mellitus type: type 2 Assessment & Plan Assessment & Plan (1) Type 2 diabetes mellitus with hyperglycemia: Code(s): E11.65 - Type 2 diabetes mellitus with hyperglycemia Category: Medical Qualifiers: Diabetes mellitus long term care administrator insulin use: without long term care administrator use Qualified Code(s): E11.65 - Type 2 diabetes mellitus with hyperglycemia Plan: Decrease the amount of carbohydrate intake, pasta, bread, rice and potatoes are all sugar and that is aside from all the sweet stuff, remember that fruits are good but they are Sweet also. Hemoglobin A1c goal of less than 7.0 patient on metformin only (2) Hypertension: Code(s): I10 - Essential (primary) hypertension Category: Medical Qualifiers: Hypertension type: essential hypertension Qualified Code(s): I10 - Essential (primary) hypertension Plan: Continue with blood pressure medication. Decrease salt intake and exercise on amlodipine 10 mg once a day hydrochlorothiazide 12.5 mg once a day and metoprolol 25 mg once a day. (3) Hypercholesterolemia: Code(s): E78.00 - Pure hypercholesterolemia, unspecified Category: Surgical Plan: Avoid fried foods, chicken skin, eggs, butter margarine, pastries and meat. Be it pork or beef they have a lot of cholesterol lovastatin LDL goal of less than 100 and triglyceride of less than 150 (4) Diabetic nephropathy: Code(s): E11.21 - Type 2 diabetes mellitus with diabetic nephropathy Category: Medical Qualifiers: Diabetes mellitus type: type 2 Qualified Code(s): E11.21 - Type 2 diabetes mellitus with diabetic nephropathy Plan: Control the cholesterol, weight, blood pressure, diabetes Plan History of Present Illness The patient is an 89-year-old female presenting for a follow-up on her chronic conditions, which include Type 2 Diabetes Mellitus, Essential Hypertension, and Hypercholesterolemia. Her diabetes is currently well controlled with a Hemoglobin A1c of 6.0%. She was previously on Lisinopril but developed angioedema and is no longer using this medication. For hypertension, she is on Amlodipine, Hydrochlorothiazide, and Metoprolol. The patient's LDL cholesterol is at 90 mg/dL and is well managed. She reports no new symptoms or significant changes in her health status. Lab results reveal normal blood counts with mild leukopenia, consistent with her prior history. There is also proteinuria, likely related to her diabetes. The patient's renal function has improved, with creatinine at 1.18 mg/dL. She is not anemic, and results for Vitamin B12, D, Folic Acid, and Thyroid function are all within normal ranges. Health Maintenance - Pneumonia vaccine up to date - Last Tetanus shot received in 2013; due for renewal - Discussion about the optional Shingles vaccine - Monitoring of blood sugar; fasting blood sugar is 85 mg/dL - Hemoglobin A1c goal set to remain below 7.0% - Regular cholesterol checks with LDL target <100 mg/dL and triglycerides <150 mg/dL Social History - Denies current involvement in activities like gardening. - Reports no regular exercise activity. Review of Systems - Cardiovascular: Denies swelling. - Vision: Denies vision problems; recently obtained new glasses. - Respiratory: Denies respiratory issues. - General: Reports no current medication refill needs; denies wound care beyond routine precautions. Physical Exam - Cardiovascular- Heart sounds auscultated; details not specified. - General Appearance- No swelling noted. Results - Labs: Hemoglobin A1c of 6.0% - Labs: LDL cholesterol at 90 mg/dL - Labs: Fasting blood sugar at 85 mg/dL - Labs: Normal complete blood count; mild leukopenia observed - Labs: Creatinine level improved to 1.18 mg/dL - Other diagnostics: Normal Vitamin B12, Vitamin D, Folic Acid, and Thyroid function tests. Plan 1. 0%. The patient will continue Metformin. Her hypertension will continue to be managed with Amlodipine, Hydrochlorothiazide, and Metoprolol. Hypercholesterolemia will be managed with Lovastatin, aiming for LDL below 100 mg/dL. Proteinuria is monitored, and renal function has improved. A tetanus booster is advised if an injury occurs, while the Shingles vaccine remains optional. A follow-up is planned in six months, with a reminder to be cautious about fall risks and respiratory infections.: Patient was informed and verbally consented to the use of an ambient scribe for clinic note documentation during this visit. Discussion Notes During our discussion, I reviewed the patient's lab results, confirming that her diabetes and cholesterol levels are well managed with current therapy. I advised discontinuing Lisinopril and switching to alternative antihypertensives due to angioedema. We discussed the significance of maintaining her A1c below 7.0% and LDL cholesterol under 100 mg/dL. I have advised her about the benefits and optional nature of the Shingles vaccine. I emphasized the importance of being cautious to avoid falls and staying away from potentially infectious situations. The patient consented to the current management plan. Patient Instructions - Continue Metformin and antihypertensive medications as prescribed. - Monitor blood sugar regularly; aim for fasting level under 99 mg/dL. - Maintain cholesterol management; adhere to a low cholesterol diet. - Be cautious to avoid falls. - Avoid contact with individuals displaying respiratory symptoms. - Consider Shingles vaccine at your discretion. - Report any new or concerning symptoms promptly. - Schedule the next follow-up appointment in six months. Orders: Orders AMB Hemoglobin A1c Today Z13.9 - Encounter for screening, unspecified
--- OUTSIDE RECORDS SUMMARY | 2024-11-05 17:04 | XMS_ITS | Clinical Summary ---
Author Organization [facility] Address [address] [place] [address] Phone Care Team Providers Care Hat Block Bench Hand Name Role Phone Apoorva Paez MD Primary Care Provider [phone] Allergies No known active allergies Medications aspirin [...] Due Date Last Done Comments Pneumococcal Vaccine: 50+ Ye ars (2 of 2 - PCV) 08/24/2014 08/24/2013 Diabetes: Hemoglobin A1C 07/04/2020 Diabetes: Ophthalmology Exam 07/04/2020 Diabetes: Pedal Pulse Checked 07/04/2020 Diabetes: Sensory Foot Exam 07/04/2020 Diabetes: Visual Foot Exam 07/04/2020 Influenza Vaccine (Season Ended) 2025 Pneumococcal Vaccine: Peds ( 0 to 5 Years) and At-Risk Patients (6 to 49 Years) Discontinued 08/24/2013 Hepatitis B Vaccine Aged Out No longe r eligible based on patient's age to complete this topic Insurance Medicare [facility] Medicare Care Teams Hat Block Bench Hand Relationship Specialty Start Date End Date Apoorva Paez MD [address] [place], [place] PCP - General 06/13/20
== END 2024-11-05 14:49 | disposition home or self-care (01) ==
LOC: HO.HMCH 14:25
PROVIDERS: PCP Internal Medicine; Visit Provider Internal Medicine
DX: E11.65 Type 2 diabetes mellitus with hyperglycemia (principal); I10 Essential (primary) hypertension; E78.00 Pure hypercholesterolemia, unspecified; E11.21 Type 2 diabetes mellitus with diabetic nephropathy; Z13.9 Encounter for screening, unspecified

== ENCOUNTER → 2024-11-05 14:25 | Outpatient (BNVA) | payer MEDICARE, SELFPAY | PROVIDERS: PCP Internal Medicine; Visit Provider Internal Medicine | DX: E11.65 Type 2 diabetes mellitus with hyperglycemia (principal); E78.00 Pure hypercholesterolemia, unspecified; I10 Essential (primary) hypertension; E11.21 Type 2 diabetes mellitus with diabetic nephropathy | CPT/HCPCS: 83036; 99212 ==

== ENCOUNTER 2025-04-19 17:20 | Outpatient (AMB) | payer MEDICARE, SELFPAY ==
[2025-04-19 17:23] VITALS: BP 108/62; PULSE 71; O2SAT 97; BMI 21.9
--- NOTE | 2025-04-19 17:23 | MHC.PC.OV ---
Vital Signs 04/19/25 17:23 04/19/25 17:34 Height 5 ft 2 in Weight 120 lb BMI 21.9 BP 108/62 130/60 Blood Pressure Location Lt brachial Lt brachial Position Sitting Sitting Pulse 71 Pulse Source Pulse Oximeter Pulse Oximetry (%) 97 Oxygen Delivery Method Room Air Intake Visit Reasons: PHYSICAL - see comments Allergies lisinopril Allergy (Unknown, Verified 04/19/25 17:23) angioedema Medication List - Last Reconciled 04/19/25 by Apoorva Paez MD amlodipine 10 mg PO DAILY blood pressure monitor (Blood Pressure Kit) As directed cholecalciferol (vitamin D3) 25 mcg PO DAILY cyanocobalamin (vitamin B-12) 1,000 mcg PO DAILY hydrochlorothiazide 12.5 mg PO QAM 30 days lovastatin 40 mg PO BEDTIME metformin 500 mg PO DAILY metoprolol succinate ER 25 mg PO DAILY Tobacco use date assessed: 11/05/24 Fall risk assessment: No Falls in past year Last assessed Fall Risk: 04/19/25 Dental Screening Dental Screen Date: 11/05/24 [facility] Medical History (Updated 04/19/25 @ 17:59 by Apoorva Paez MD) Multinodular thyroid Subclinical hyperthyroidism Vitamin D deficiency Chronic kidney disease (CKD) stage G3a/A1, moderately decreased glomerular filtration rate (GFR) between 45-59 mL/min/1.73 square meter and albuminuria creatinine ratio less than 30 mg/g Boutonniere deformity Thyroid nodule Diabetic nephropathy Hypertension Type 2 diabetes mellitus with hyperglycemia Surgical History History of thyroidectomy Hypercholesterolemia Family History Father Medical history unknown Mother Diabetes Social History Household Members Other:: daughter Housing: House Alcohol intake: never Patient Tobacco Use Status: Former Tobacco user Tobacco use type: Cigarette Years Smoked: stopped 2003 e-Cigarette/Vaping Use: Never Used Second Hand Smoke Exposure: No Advance Directives Date on File: 03/30/21 service: No Current occupational status: retired Cognitive needs: No Hearing needs: No Vision needs: Yes Questionnaire Thrive Questionnaire Date Thrive assessed: 11/05/24 I am a: Patient What is your living situation today?: I have a steady place to live Within the past 12 months, did the food you bought not last and you didn't have the money to get more?: Never true Within the past 12 months, did you worry whether your food would run out before you got money to buy more?: Never true Do you have trouble paying for medicines?: No Do you have trouble getting transportation to medical appointments?: No Do you have trouble paying your heating and electricity bill?: No Do you have trouble taking care of your child, family member or friend?: No Do you have trouble with day-to-day activities such as bathing, preparing meals, shopping, managing finances, etc.?: No Are you currently unemployed and looking for a job?: No Are you interested in more education?: No Please select the resources that you would like help with: None Currently or been in a relationship where the following occur: No concerns reported THRIVE Score: 0 SHYAM-7 AMB Questionnaire SHYAM-7 Date SHYAM - 7 assessed: 11/05/24 Source: Developed by Drs. Korey Sepulveda, Marilyn Cadet, Marcus Asif and colleagues, with an educational cary from [employer]. Review of Systems Const Denies poor appetite and Denies weakness Eyes Denies no additional complaints ENT Reports Normal hearing present, Denies dizziness, Denies nasal congestion, Denies tinnitus and Denies sore throat Card Denies chest pain, Denies syncope, Denies rapid heart rate and Denies dyspnea Resp Denies cough and Denies dyspnea GI Denies change in stool character, Reports constipation, Denies diarrhea, Denies nausea and Denies vomiting Denies urinary frequency, Denies difficulty voiding and Denies dysuria Neuro Reports Normal hearing present, Denies confusion, Denies dizziness, Denies syncope and Denies weakness Psych Denies confusion Physical exam (Primary Care) Vital Signs: Last Vital Signs Pulse 71 04/19/25 17:23 BP 130/60 04/19/25 17:34 Pulse Ox 97 04/19/25 17:23 Oxygen Delivery Method Room Air 04/19/25 17:23 BMI result Body Mass Index 21.9 Tobacco/Smoking Status: Tobacco use Status Tobacco use date assessed 11/05/24 04/19/25 17:24 Patient Tobacco Use Status Former Tobacco user 04/19/25 17:24 Tobacco use type Cigarette 04/19/25 17:24 e-Cigarette/Vaping Use Never Used 04/19/25 17:24 Thrive Assessment: Date of Thrive Assessment Date Thrive assessed 11/05/24 04/19/25 17:24 Currently or been in a relationship where the following occur: No concerns reported Const General: No confusion Orientation/consciousness: No confusion HENMT Other: impacted cerumen bilateral Head: Yes normocephalic Ears: external ears normal Face and sinus: Yes normal facial exam Mouth: moist mucous membranes Throat: Yes tonsils normal Eyes Conjunctivae: conjunctivae normal Pupils: Equal, round and reactive pupils present and Pupil accommodation reflex normal Direct Ophthalmoscopy: normal light reflex Neck Neck: No lymphadenopathy Thyroid: Thyroid normal Chest Chest palpation & inspection: normal inspection of the chest Resp Effort & Inspection: normal respiratory effort and no audible wheezes Auscultation: clear to auscultation bilaterally, no crackles, no wheezes and lung sounds not diminished Cardio Rate: regular rate Rhythm: regular rhythm Peripheral pulses: radial pulses present and dorsalis pedis present GI Palpation (GI): no masses Auscultation: normal bowel sounds and normoactive bowel sounds Rectal Exam - Female: deferred Skin General skin exam: no rashes or lesions noted Rashes: no rashes Neuro General: No confusion Cranial nerves: Yes Equal, round and reactive pupils present and Yes Normal hearing present Cognition (Neuro): normal cognition Gait exam (Neuro): Normal gait present Motor exam (neuro): 5/5 motor strength present throughout Deep tendon reflexes (DTR's): Right brachioradialis reflex intensity grade: 2+, Left brachioradialis reflex intensity grade: 2+, Right patellar reflex intensity grade: 2+ and Left patellar reflex intensity grade: 2+ Extrem General: No edema Office Procedures Cerumen Removal From which ear canal was the cerumen removed: bilateral Removal: otoscope w/curette and cerumen loop/spoon Notes: patient tolerated procedure well, no complications and ear canal clear [id number] Wax Removal by Spoon/Curette Results AMB Hemoglobin A1c AMB Hemoglobin A1c 5.8 % Last Edit by Karen Connolly CMA on 04/19/25 17:39 Results Reviewed Results Reviewed: Laboratory Last Values Hgb A1c (Clinic) 5.8 % (4.0-6.0) 04/19/25 17:24 Coding Level of Care Code Est Pt Prev Care >65y(06284) Diagnoses Annual physical exam Z00.00 Type 2 diabetes mellitus with hyperglycemia, without long-term current use of insulin E11.65 Diabetes mellitus senior living insulin use: without senior living use Essential hypertension I10 Hypertension type: essential hypertension Hypercholesterolemia E78.00 Osteopenia M85.80 Diabetic nephropathy associated with type 2 diabetes mellitus E11.21 Diabetes mellitus type: type 2 Impacted cerumen of both ears H61.23 CPT Codes Office Procedure - CPT: 80799-[id number] Wax Removal by Spoon/Curette ([id number]) Assessment & Plan Assessment & Plan (1) Annual physical exam: Code(s): Z00.00 - Encounter for general adult medical examination without abnormal findings Category: Medical Plan: Patient is advised to eat healthy, keep well hydrated, keep active and have adequate sleep. (2) Type 2 diabetes mellitus with hyperglycemia: Code(s): E11.65 - Type 2 diabetes mellitus with hyperglycemia Category: Medical Qualifiers: Diabetes mellitus senior living insulin use: without senior living use Qualified Code(s): E11.65 - Type 2 diabetes mellitus with hyperglycemia Plan: Decrease the amount of carbohydrate intake, pasta, bread, rice and potatoes are all sugar and that is aside from all the sweet stuff, remember that fruits are good but they are Sweet also. Hemoglobin A1c goal of less than 7.0 on metformin 500 mg once a day (3) Hypertension: Code(s): I10 - Essential (primary) hypertension Category: Medical Qualifiers: Hypertension type: essential hypertension Qualified Code(s): I10 - Essential (primary) hypertension Plan: Continue with blood pressure medication. Decrease salt intake and exercise continue with hydrochlorothiazide metoprolol and amlodipine patient had angioedema with lisinopril (4) Hypercholesterolemia: Code(s): E78.00 - Pure hypercholesterolemia, unspecified Category: Surgical Plan: Avoid fried foods, chicken skin, eggs, butter margarine, pastries and meat. Be it pork or beef they have a lot of cholesterol LDL goal of less than 100 and triglyceride of less than 150 on lovastatin 40 mg at bedtime (5) Osteopenia: Code(s): M85.80 - Other specified disorders of bone density and structure, unspecified site Category: Medical Plan: Discussed about repeating bone density. Discussed the need for calcium and vitamin-D. (6) Diabetic nephropathy: Code(s): E11.21 - Type 2 diabetes mellitus with diabetic nephropathy Category: Medical Qualifiers: Diabetes mellitus type: type 2 Qualified Code(s): E11.21 - Type 2 diabetes mellitus with diabetic nephropathy Plan: Control the cholesterol, weight, blood pressure, diabetes (7) Impacted cerumen of both ears: Code(s): H61.23 - Impacted cerumen, bilateral Category: Medical Plan History of Present Illness The patient is an 89-year-old female presenting for an annual physical examination. Her medical history is notable for diabetes mellitus, controlled hypertension, hypercholesterolemia, diabetic nephropathy, and osteopenia. Her last blood work in August showed mild leukopenia with a normal blood count, normal electrolytes, and a creatinine of 1.18. Her hemoglobin A1c in November was 6.1%, and her cholesterol is well-controlled with an LDL of 90. The patient is also known to have proteinuria. Her last bone density scan was in April 2021. She has a history of angioedema with lisinopril. Her current medications include metformin, hydrochlorothiazide, metoprolol, amlodipine, lovastatin, vitamin D, and vitamin B12. The patient denies any new diagnoses or surgeries since her last visit. She does not drink alcohol and no longer smokes cigarettes. She does not engage in formal exercise but walks around her house without issues. Health Maintenance A request for laboratory studies, including a complete blood count, metabolic panel, hemoglobin A1c, and a urine test, was ordered to be completed in four months. Vaccinations for influenza and shingles were discussed, but the patient declined at this time. Guidance was provided on being careful during the upcoming cold and flu season due to the persistence of COVID-19. Follow-up is scheduled for four months' time to coincide with her lab work. Social History - Substance Use: The patient denies alcohol consumption and no longer smokes cigarettes. - Exercise: She does not do any formal exercise but reports walking around the house. Review of Systems - General: Denies syncope, dizziness, or fever. - HEENT: Reports good hearing and denies difficulty with swallowing. - Cardiovascular: Denies chest pain or discomfort. - Respiratory: Denies dyspnea at rest, at night, or with exertion when walking in her home. - Gastrointestinal: Denies nausea, vomiting, heartburn, constipation, diarrhea, or blood in stool. - Genitourinary: Reports nocturia two to three times per night, which is her baseline. Physical Exam General: Cooperative, healthy appearing, comfortable, no acute distress and well developed Orientation: Patient oriented x3 Limitations: No limitations Head: Normal to inspection Ears: Hearing grossly normal bilaterally, but with 50% ear wax in the right ear Nose: Normal external nose present Face and sinus: Normal facial exam Eyes: Appearance normal, both eyes and all related structures Neck: Normal visual inspection and Yes full ROM Respiratory: Normal respiratory effort and able to speak in complete sentences. Clear to auscultation bilaterally, but with a little bit of crackling at the back base of the lungs Cardiovascular: Regular rate and rhythm with some extra beats. Normal S1 and S2 GI: Normal to inspection. Soft to palpation and nontender Skin: No rashes or lesions noted Neuro: Patient oriented x3 Extremities: Normal to inspection Results - [id number] Hemoglobin A1c: 5.8%. - Lab Results (August): Mild leukopenia with normal blood count; normal electrolytes and renal function with a creatinine of 1.18 mg/dL; normal liver function. - Lab Results (November): Hemoglobin A1c was 6.1%. - Lab Results (Recent): LDL cholesterol was 90 mg/dL. - Urinalysis: Positive for proteinuria. - Bone Density Scan (April 2021): Showed osteopenia. Plan Patient was informed and verbally consented to the use of an ambient scribe for clinic note documentation during this visit. 1. Type 2 Diabetes Mellitus The patient's diabetes is well-controlled, with a [id number] hemoglobin A1c of 5.8%, well below the goal of less than 7.0%. Continue current dosage of metformin 500 mg once daily. Dietary practices were discussed, with continued encouragement for healthy eating, allowing for leniency during holiday periods. 2. Hypertension Blood pressure was 130/60 mmHg in the office, which is well-controlled. The patient will continue her current regimen of hydrochlorothiazide 12.5 mg, metoprolol 25 mg, and amlodipine 10 mg daily. A history of angioedema with lisinopril is noted. 3. Hypercholesterolemia Cholesterol levels are at goal, with a recent LDL of 90 mg/dL, which is below the target of 100 mg/dL. Continue lovastatin 40 mg at bedtime. 4. Osteopenia The patient's last bone density scan was in 2020. The need for calcium and vitamin D supplementation was discussed, and the patient confirms she is taking vitamin D. A repeat bone density scan was discussed, and the decision was deferred to the patient. 5. Cerumen Impaction The patient has bilateral cerumen impaction, which was noted on physical exam. An in-office attempt at removal was partially successful in opening the canal but the wax was too adherent to fully remove. A prescription for Debrox will be sent to help soften the earwax. Discussion Notes I reviewed the patient's stable chronic conditions, including her diabetes, hypertension, and hypercholesterolemia, noting her excellent lab results. I explained that although her initial blood pressure reading was low, a recheck showed a normal value, so we would not be adjusting her medications. I informed the patient that I heard some extra heartbeats during the exam but reassured her that this is common and not a concern unless she experiences dizziness or syncope, which she denies. I attempted to remove impacted earwax but found it to be too adherent; I explained that I would prescribe drops to help soften it. We discussed preventative care, including vaccinations for influenza and shingles, which the patient can obtain at a pharmacy if she chooses. I also discussed repeating her bone density scan, and she will let me know if she wants to proceed with the test. I provided a requisition for follow-up blood and urine tests to be done in four months and will see her back at that time. Patient Instructions - Continue to take your current medications for blood pressure, cholesterol, and diabetes. - I will send a prescription for Debrox ear drops to your pharmacy to help soften the wax in your ears. - Please go for blood and urine tests in about four months. - We will schedule an appointment for you to come back and see me in four months. - Consider getting a flu shot and shingles vaccine to protect yourself, especially as the weather gets colder. - You are doing a great job with your diet, but be mindful of your food choices outside of the holidays. - Let me know if you have any problems, such as feeling dizzy or faint, before your next visit. Orders: Orders AMB Hemoglobin A1c Today Z13.9 - Encounter for screening, unspecified Complete Blood Count Auto Diff 4 Months E11.65 - Type 2 diabetes mellitus with hyperglycemia Comprehensive Met. Panel 4 Months E11. - Type 2 diabetes mellitus with hyperglycemia Creatinine Urine 4 Months E11. - Type 2 diabetes mellitus with hyperglycemia Thyroid Stimulating Hormone 4 Months E11. - Type 2 diabetes mellitus with hyperglycemia Free T4 (Free Thyroxine) 4 Months . - Type 2 diabetes mellitus with hyperglycemia Microalbumin, Random (w Creat) 4 Months . - Type 2 diabetes mellitus with hyperglycemia Vitamin B12 and Folate 4 Months - Type 2 diabetes mellitus with hyperglycemia Vitamin D 25-OH Total 4 Months - Type 2 diabetes mellitus with hyperglycemia Hemoglobin A1c 4 Months E11. - Type 2 diabetes mellitus with hyperglycemia Lipid Panel 4 Months E11. - Type 2 diabetes mellitus with hyperglycemia, E78.00 - Pure hypercholesterolemia, unspecified
[2025-04-19 17:34] VITALS: BP 130/60
--- OUTSIDE RECORDS SUMMARY | 2025-04-20 07:33 | XMS_ITS | Clinical Summary ---
Author Organization [facility] Address [address] [place] [address] Phone Care Team Providers Care Mortgage Protection Sales Name Role Phone Apoorva Paez MD Primary Care Provider Allergies No known active allergies Medications aspirin [...] Years Used Date Smoking Tobacco: Former Cigarettes 0 Q uit: 06/03/2001 Smokeless Tobacco: Never Alcohol [...] Visual Foot Exam 07/04/2020 Influenza Vaccine (#1) 2025 Pneumococcal Vaccine: Peds ( 0 to 5 Years) and At-Risk Patients (6 to 49 Years) Discontinued 08/24/2013 Hepatitis B Vaccine Aged Out No longe r eligible based on patient's age to complete this [place] [address] [facility] Medicare Care Teams Mortgage Protection Sales Relationship Specialty Start Date End Date Apoorva Paez MD [facility] [id number] [place], [place] PCP - General 06/13/20
== END 2025-04-19 18:04 | disposition home or self-care (01) ==
LOC: HO.HMCH 17:20
PROVIDERS: PCP Internal Medicine; Visit Provider Internal Medicine
DX: Z00.00 Encounter for general adult medical examination without abnormal findings (principal); E11.65 Type 2 diabetes mellitus with hyperglycemia; E11.21 Type 2 diabetes mellitus with diabetic nephropathy; H61.23 Impacted cerumen, bilateral; I10 Essential (primary) hypertension; E78.00 Pure hypercholesterolemia, unspecified; M85.80 Other specified disorders of bone density and structure, unspecified site

== ENCOUNTER → 2025-04-19 17:20 | Outpatient (BNVA) | payer MEDICARE, SELFPAY | PROVIDERS: PCP Internal Medicine; Visit Provider Internal Medicine | DX: Z00.00 Encounter for general adult medical examination without abnormal findings (principal); E11.65 Type 2 diabetes mellitus with hyperglycemia; I10 Essential (primary) hypertension; E78.00 Pure hypercholesterolemia, unspecified; M85.80 Other specified disorders of bone density and structure, unspecified site; E11.21 Type 2 diabetes mellitus with diabetic nephropathy; H61.23 Impacted cerumen, bilateral | CPT/HCPCS: 69210; 83036; 99397 ==